=== PATIENT | female | born 1935 | race Caucasian/White ===

== ENCOUNTER 2017-05-22 11:17 | Emergency (ER) | payer MEDICARE, SELFPAY ==
[2017-05-22 11:20] VITALS: BP 131/70; PULSE 57; RESP 14; TEMP 36.2; O2SAT 96; BMI 29.7
--- NOTE | 2017-05-22 11:38 | EKG12_ITS ---
Test Reason : Blood Pressure : / mmHG Vent. Rate : 059 BPM Atrial Rate : 059 BPM P-R Int : 178 ms QRS Dur : 148 ms QT Int : 516 ms P-R-T Axes : 003 -10 075 degrees QTc Int : 510 ms Sinus bradycardia Left bundle branch block Abnormal ECG Confirmed by PETER POST, ADELFO ([id number]), editor producer IMANI ALEX ([id number]) on 05/27/2017 9:04:26 AM Referred By: SHANNA Confirmed By:ADELFO GREEN MD
--- NOTE | 2017-05-22 11:50 | RAD_ITS ---
STUDY: X-RAY CHEST REASON FOR EXAM: Female, 81 years old. Weakness and lightheadedness. TECHNIQUE: Single AP portable view of the chest. COMPARISON: Comparison is made with prior study dated April 19, 2014. FINDINGS: EKG electrodes are seen. The lungs are clear and expanded. Scattered calcified granulomas. There is no demonstrated pleural abnormality. There is mild cardiac enlargement. Normal mediastinum and armando. Normal visualized pulmonary arteries. There is atherosclerotic calcification of the aortic arch with tortuosity. There are diffuse degenerative changes of the visualized thoracic spine. Normal visualized ribs, clavicles, and shoulders. There is no demonstrated abnormality of the visualized soft tissue structures of the upper abdomen. RAD/Chest 1 View (Portable) IMPRESSION: Mild cardiomegaly. Electronically Signed: Jigar Hodgson MD at 12:19 EDT Tel [phone], Service support ,
[2017-05-22 11:55] LABS: Bedside Glucose 84 mg/dL (70-110)
[2017-05-22] MEDS: Ondansetron 4 MG/2 ML Vial IV (12:03)
[2017-05-22] MEDS: 0.9% Normal Saline 1,000 ML 1000 ML IV (12:03)
[2017-05-22 12:05] VITALS: BP 122/73; PULSE 60; RESP 14; O2SAT 98
[2017-05-22 12:20] LABS: Absolute Lymphocyte Count 1.13 X10^3/ul (0.83-4.51); Absolute Neutrophil Count 3.9 X10^3/uL (2.0-7.7); Basophil# 0.03 X10^3/uL; Basophil% 0.5 % (0-1); Eosinophils% 1.8 % (0-5); Hematocrit 42.4 % (37-47); Hemoglobin 13.6 g/dl (12.0-15.0); Lymphocyte # 1.13 X10^3/ul (4.0); Mean Corp Hgb Conc 32.1 g/gl (32-36); Mean Corpuscular Hgb 29.9 pg (27.0-32.0); Mean Corpuscular Volume 93.2 fL (81-99); Mean Platelet Vol. 10.6 fl (6.2-12.0); Monocyte# 0.46 X10^3/uL; Monocyte% 8.1 % (0-10); Neutrophil # 3.93 X10^3/uL (2.7-7.7); Neutrophil % 69.4 % (47-70); Platelet Count 155 K/mm3 (150-450); RBC Distribution Width CV 13.9 % (11.6-14.6); RBC Distribution Width SD 47.4 fl (35.1-43.9); Red Blood Count 4.55 M/mm3 (4.2-5.4); White Blood Count 5.7 K/mm3 (4.4-11.0)
[2017-05-22 12:21] LABS: POSITIVE COUNT NO; POSITIVE DIFFERENTIAL NO; POSITIVE MORPHOLOGY NO
[2017-05-22 12:34] LABS: ALB/GLOB Ratio 1.1 RATIO (0.9-2.4); AST(SGOT) 24 U/L (15-37); Alanine Aminotransfer ALT/SGPT 11 U/L (13-56); Albumin, Serum 3.8 g/dL (3.2-5.0); Alkaline Phosphatase 127 U/L (45-117); Anion Gap 8 (5-15); BUN 13 mg/dL (7-18); BUN/Creat Ratio 17.9 RATIO (10-20); Calcium,Total 8.9 mg/dL (8.5-10.1); Chloride 105 mmol/L (98-107); Creatinine, Serum 0.73 mg/dL (0.55-1.02); EST Glomerular Filtration Rate 82 mL/min (>60); Est Glom Filt Rate - Afr Amer 99 mL/min (>60); Estimated Creatinine Clearance 36.08 ml/min; Globulin 3.5 g/dL (2.2-4.2); Glucose 93 mg/dL (74-106); Potassium 4.1 mmol/L (3.5-5.1); Protein, Total 7.3 g/dL (6.4-8.2); Sodium Level 141 mmol/L (136-145)
[2017-05-22 13:08] VITALS: BP 113/68; BP 120/56; BP 127/62; PULSE 58; PULSE 63; PULSE 73
[2017-05-22 13:30] LABS: Color, Urine Yellow (Yellow); Glucose, Dipstick Normal (Normal); Ketone-Dipstick 5 mg/dl (Negative); Leukocyte Esterase-Dipstick 500 /ul (Negative); Nitrite-Dipstick Negative (Negative); Occult Blood-Urine 10 /ul (Negative); Protein-Dipstick 30 mg/dl (Negative); Specific Gravity, Urine 1.015 (1.002-1.030); Urine Bilirubin Dipstick Negative (Negative); Urine Clarity Cloudy (Clear); Urine Urobilinogen Normal (Normal)
[2017-05-22 13:40] LABS: Bacteria 1+ /hpf (None Seen); Hyaline Cast 0-5 SEEN /lpf (0-5); Mucous, Urine RARE /hpf (<or=2+); Red Blood Cells-Urine 0-5 SEEN /hpf (0-5); Renal Epithelial Cells 0-5 SEEN /hpf (0-5); Squamous Epithelial Cells - UA 5-10 SEEN /hpf (5-10); White Blood Cells 10-25 SEEN /hpf (0-5)
[2017-05-22 14:26] VITALS: BP 130/66; PULSE 66; RESP 13; O2SAT 96
--- NOTE | 2017-05-22 14:29 | ED.VISSUMM ---
- ER Visit Summary Date of Service: 05/22/17 Chief Complaint: Hypotension History of Present Illness: The patient is a 81 F who has a history of hypertension and Parkinson's. She has a known left bundle branch block. She states that she has had 3 prior heart catheterizations because of the bundle branch block. This morning she woke up feeling fine. She was in cutting her 's hair when she began to feel nauseated sweaty and weak. took her blood pressure was in the 80s. She states that she is doing better now but still nauseated and feels weak. She never lost consciousness. She denies any neurologic deficits. No chest pain or shortness of breath. Physical Examination: 131/76 temperature 97.1 heart rate is 57 respirations are 14 pulse ox 96% on room air Gen: Well-nourished well-developed Head: Normocephalic atraumatic Eyes: Perrl EOMI ENT: TMs clear no rhinorrhea moist mucous membranes Neck: Supple no lymphadenopathy no JVD nontender CVS: Regular rate rhythm no murmurs normal S1-S2 Respiratory: No distress clear to auscultation bilaterally chest nontender Abdomen: Soft nontender nondistended normal bowel sounds no masses Back: Nontender Extremity: Nontender no edema Skin: Normal color no rash Neuro: alert orientated ?3 CN II-XII intact normal strength sensation reflexes gait cerebellar Psych: Normal affect normal mood Test Results: A sinus rhythm at a rate of 59. CBC chemistries troponin negative. Urinalysis showed contamination. Chest x-ray negative. Emergency Department Course and Treatment: IV fluids and Zofran. Her orthostatics are negative. She has been up walking to the bathroom and feels very well. I do not see an obvious cause for her near syncopal episode today. Family is comfortable taking her home and will return should her symptoms return. Impression:. Near syncope This note was generated with [employer] dictation software. It may contain incorrect words, spelling, and punctuation that were not noted in review of the chart prior to signing ED Disposition - Plan for ED Patient: Disposition: Home or Assisted Living Chief Complaint: Hypotension Instructions: ED Near Syncope Unkn Referrals: Tin Ignacio MD [Primary Care Provider] - As Needed Additional Instructions: If symptoms return please lay down and return immediately to the emergency department
== END 2017-05-22 14:44 | disposition home or self-care (01) ==
PROVIDERS: Emergency Provider Emergency Medicine; Family Provider Internal Medicine; PCP Internal Medicine
DX: R55 Syncope and collapse (principal); I10 Essential (primary) hypertension; I44.7 Left bundle-branch block, unspecified; G20 Parkinson's disease
CPT/HCPCS: 71045; 80053; 81001; 82962; 84484; 85025; 93005; 96361; 96374; 99285; J7030; A4216; J2405

== ENCOUNTER 2017-06-15 17:08 | Emergency (ER) | payer MEDICARE, SELFPAY ==
[2017-06-15 17:09] VITALS: BP 131/66; PULSE 73; RESP 14; TEMP 36.7; O2SAT 95; BMI 28.8
[2017-06-15 17:57] VITALS: BP 110/63; BP 116/66; BP 122/58; PULSE 102; PULSE 70; PULSE 80
[2017-06-15 18:00] LABS: Hemoglobin 13.5 g/dl (12.0-15.0); Mean Corp Hgb Conc 32.9 g/gl (32-36); Mean Corpuscular Hgb 30.5 pg (27.0-32.0); Mean Corpuscular Volume 92.6 fL (81-99); Mean Platelet Vol. 10.6 fl (6.2-12.0); Platelet Count 164 K/mm3 (150-450); RBC Distribution Width CV 13.4 % (11.6-14.6); RBC Distribution Width SD 45.4 fl (35.1-43.9); Red Blood Count 4.43 M/mm3 (4.2-5.4); White Blood Count 6.5 K/mm3 (4.4-11.0)
[2017-06-15 18:05] LABS: Scan Indicated on CBC? Y/N NO
[2017-06-15 18:06] LABS: Anion Gap 4 (5-15); BUN 9 mg/dL (7-18); BUN/Creat Ratio 13.8 RATIO (10-20); Calcium,Total 8.8 mg/dL (8.5-10.1); Chloride 108 mmol/L (98-107); Creatinine, Serum 0.65 mg/dL (0.55-1.02); EST Glomerular Filtration Rate 93 mL/min (>60); Est Glom Filt Rate - Afr Amer 113 mL/min (>60); Estimated Creatinine Clearance 36.08 ml/min; Glucose 113 mg/dL (74-106); Potassium 3.7 mmol/L (3.5-5.1); Sodium Level 140 mmol/L (136-145)
--- NOTE | 2017-06-15 19:48 | ED.DCSUM_ITS ---
- ER Visit Summary Date of Service: 06/15/17 Chief Complaint: Dizziness with nausea and sense of unwellness History of Present Illness: The patient is a 81 F who presents with dizziness. Patient's definition of dizziness as lightheadedness. She apparently has had this in the past and visited other emergency departments and was found to have positive orthostatic vital signs. She denies headache. Denies double vision, blurred vision loss of vision. She has trouble speech or swallowing. She denies paresthesia, anesthesia or motor weakness. She denies clumsiness or falling. There is no history of trauma. She denies black, bloody or maroon stool. She does complain of nausea without vomiting. Denies abdominal pain or back pain. Denies chest pain or respiratory symptoms. She states this started shortly after her carbidopa was increased from twice a day to 3 times a day by her neurologist Dr. Ruffin. Upon further questioning states she has complained of some intermittent blurred vision. The blurred vision was binocular. She also complains of depression. states she also was placed on a medicine for her medical memory since she has mild dementia. Physical Examination: Vital signs remarkable slight elevation blood pressure 131 /66. Orthostatic vital signs are negative. Patient has a masked face. Head is atraumatic normocephalic. Pupils are equal round reactive. Extraocular muscles are intact. TMs are pearly white with landmarks noted. Nares patent with no drainage. Posterior pharynx without erythema or exudate. Uvula is midline. There is no dysphonia or dysphasia. Trachea is midline. There is no stridor with auscultation of the neck. Heart is regular without murmur, gallop or rub. S1 and S2 are normal. Lungs are clear to auscultation with good movement of air bilaterally. Abdomen is soft nontender with normal bowel sounds. No palpable cell mass. She is alert oriented ?3. Psychomotor skills are slow. Motor and sensory intact. She has cogwheel rigidity of her extremities. DTRs are diminished but symmetric. There is no clonus or Babinski sign noted. Cranial 2 through 12 are intact. Test Results: Orthostatic vital signs negative. CBC electro panel are unremarkable. Emergency Department Course and Treatment: Since patient has prior history onset of hypertension and this is a known side effect from carbidopa orthostatics were ordered. Blood work was ordered as well because she states she had dark stool but not black stool. Treatment Plan: Spoke with Dr. Yun on-call for Dr. Ruffin. Recommended follow-up with her PCP and Dr. Ruffin. This may be a polypharmaceutical reaction since she is on 3 antihypertensive meds as well as carbidopa which may attribute to her orthostatic symptoms. Disposition: Discharged to home in stable condition Impression: 1. Lightheadedness of uncertain etiology 2. Nausea uncertain etiology 3. History of Parkinson's disease 4. History of hypertension This note was generated with [employer] software. It may contain incorrect words, spelling, and punctuation that were not noted in review of the chart prior to signing ED Disposition - Plan for ED Patient: Disposition: Home or Assisted Living Chief Complaint: Dizziness Instructions: ED Dizziness [facility] Referrals: Tin Ignacio MD [Primary Care Provider] - 3-5 Days Additional Instructions: Call Dr. Ruffin's office on Friday to discuss your symptoms.
[2017-06-15 19:54] VITALS: BP 114/51; PULSE 68; RESP 12; O2SAT 95
== END 2017-06-15 19:56 | disposition home or self-care (01) ==
PROVIDERS: Emergency Provider Emergency Medicine; Family Provider Internal Medicine; PCP Internal Medicine
DX: R42 Dizziness and giddiness (principal); R11.0 Nausea; G20 Parkinson's disease; I10 Essential (primary) hypertension; F32.9 Major depressive disorder, single episode, unspecified
CPT/HCPCS: 80048; 85027; 99284; A4216

== ENCOUNTER 2017-09-05 16:26 | Observation (INO) | payer MEDICARE, SELFPAY ==
[2017-09-05] VITALS (13 sets, daily range): BP systolic 116–146; BP diastolic 56–73; PULSE 61–93; RESP 11–19; TEMP 36.6–36.9; O2SAT 93–98; BMI 28.0; BMI 27.3
--- NOTE | 2017-09-05 16:55 | CT_ITS ---
STUDY: CT BRAIN WITHOUT CONTRAST REASON FOR EXAM: Female, 81 years old. Weakness and dizziness RADIATION DOSAGE (If Supplied By Facility): CTDIvol = ( 44.99 ) mGy, DLP = ( 796.11 ) mGycm TECHNIQUE: Transaxial CT imaging of the brain was performed without administration of intravenous contrast material. Individualized dose optimization techniques were used for this CT. COMPARISON: None. FINDINGS: Normal soft tissue structures. There is hyperostosis frontalis internus. Normal size ventricles and extra-axial spaces for the patient's age. There are areas of decreased attenuation within the white matter tracts of the supratentorial brain, consistent with microvascular disease changes. Normal basal ganglia and thalami. Normal brainstem. Normal cerebellum. There is no intracranial hemorrhage. There are no findings of an acute ischemic infarction. Normal visualized paranasal sinuses. CT/Brain/Head without Contrast IMPRESSION: Chronic involutional changes of the brain. Electronically Signed: Michael Inman MD at 19:06 EDT , Service support ,
--- NOTE | 2017-09-05 16:55 | EKG12_ITS ---
Test Reason : DIZZINESS Blood Pressure : / mmHG Vent. Rate : 073 BPM Atrial Rate : 073 BPM P-R Int : 166 ms QRS Dur : 160 ms QT Int : 476 ms P-R-T Axes : 011 -19 069 degrees QTc Int : 524 ms Normal sinus rhythm Left bundle branch block Abnormal ECG Confirmed by KELLE EDEN ([id number]), online editor IMANI ALEX ([id number]) on 09/09/2017 1:39:10 PM Referred By: GABRIEL Confirmed By:KELLE EDEN
[2017-09-05 17:25] LABS: Bedside Glucose 84 mg/dL (70-110)
[2017-09-05 17:40] LABS: Prothrombin Time (Protime)PT. 13.3 SECONDS (11.7-14.9)
[2017-09-05 17:41] LABS: Partial Thromboplast Time 32.8 Seconds (24.1-36.2)
--- NOTE | 2017-09-05 17:41 | ED.VISSUMM ---
- ER Visit Summary Date of Service: 09/05/17 Chief Complaint: Dizziness History of Present Illness: The patient is a 81 F presenting with dizziness and near syncope. Patient states it started around 1 hour ago. She denies vertigo symptoms. She states that she is unsteady on her feet and feels very dizzy. She also noted that she saw bugs crawling on a tile. Her family states that they were not there. She was reluctant to tell her family because she did not want to come to the emergency department. She denies fever. Denies chest pain or shortness of breath. Physical Examination: Vitals are stable. Patient is afebrile. Alert no acute distress. HEENT exam is unremarkable. Neck is supple. Lungs are clear and equal bilaterally. Heart is regular rate and rhythm. Abdomen is soft nontender nondistended. Extremities are unremarkable. Skin is warm and dry. No focal neurologic deficit. NIH 0 Remainder of exam is unremarkable. Emergency Department Course and Treatment: EKG is sinus with a left bundle branch block rate of 73. CBC, chemistries unremarkable. INR is 1.0. Urinalysis unremarkable. Troponin is negative. Patient continues to have some dizziness. She states she was able to get up with assistance. Discussed with the hospitalist for admission. Disposition: Observation Impression: Near syncope This note was generated with [employer] dictation software. It may contain incorrect words, spelling, and punctuation that were not noted in review of the chart prior to signing ED Disposition - Plan for ED Patient: Chief Complaint: Dizziness Referrals: Tin Ignacio MD [Primary Care Provider] -
[2017-09-05 17:44] LABS: Absolute Neutrophil Count 2.9 X10^3/uL (2.0-7.7); Anion Gap 6 (5-15); BUN 12 mg/dL (7-18); BUN/Creat Ratio 20.1 RATIO (10-20); Basophil# 0.05 X10^3/uL; Basophil% 0.9 % (0-1); Calcium,Total 9.2 mg/dL (8.5-10.1); Chloride 108 mmol/L (98-107); EST Glomerular Filtration Rate 103 mL/min (>60); Eosinophil# 0.16 X10^3/uL; Eosinophils% 2.8 % (0-5); Est Glom Filt Rate - Afr Amer 124 mL/min (>60); Estimated Creatinine Clearance 36.08 ml/min; Glucose 83 mg/dL (74-106); Hematocrit 39.9 % (37-47); Hemoglobin 12.7 g/dl (12.0-15.0); Lymphocyte % 33.4 % (19-41); Mean Corp Hgb Conc 31.8 g/gl (32-36); Mean Corpuscular Hgb 30.4 pg (27.0-32.0); Mean Corpuscular Volume 95.5 fL (81-99); Mean Platelet Vol. 10.6 fl (6.2-12.0); Monocyte# 0.64 X10^3/uL; Monocyte% 11.2 % (0-10); Neutrophil # 2.94 X10^3/uL (2.7-7.7); Neutrophil % 51.7 % (47-70); Platelet Count 165 K/mm3 (150-450); Potassium 4.1 mmol/L (3.5-5.1); RBC Distribution Width CV 13.9 % (11.6-14.6); Red Blood Count 4.18 M/mm3 (4.2-5.4); Sodium Level 142 mmol/L (136-145); White Blood Count 5.7 K/mm3 (4.4-11.0)
[2017-09-05 17:45] LABS: POSITIVE COUNT NO; POSITIVE DIFFERENTIAL NO; POSITIVE MORPHOLOGY NO
[2017-09-05 18:02] LABS: Mucous, Urine 0 SEEN /hpf (<or=2+); Red Blood Cells-Urine 0 SEEN /hpf (0-5); Squamous Epithelial Cells - UA 0 SEEN /hpf (5-10); White Blood Cells 0 SEEN /hpf (0-5)
[2017-09-05 18:05] LABS: Color, Urine Yellow (Yellow); Glucose, Dipstick Normal (Normal); Ketone-Dipstick Negative (Negative); Leukocyte Esterase-Dipstick Negative /ul (Negative); Nitrite-Dipstick Negative (Negative); Occult Blood-Urine Negative /ul (Negative); Protein-Dipstick Negative (Negative); Urine Bilirubin Dipstick Negative (Negative); Urine Clarity Clear (Clear); Urine Urobilinogen Normal (Normal)
--- NOTE | 2017-09-05 18:09 | RAD_ITS ---
STUDY: X-RAY CHEST REASON FOR EXAM: Female, 81 years old. Dizziness, confusion TECHNIQUE: Single AP portable view of the chest. COMPARISON: Prior study of 05/22/2017 FINDINGS: pyrotechnician leads are present. The lungs are clear and expanded. There is no demonstrated pleural abnormality. There is mild cardiac enlargement. Normal mediastinum and armando. Normal visualized pulmonary arteries. There are calcified plaques of the aortic arch. Normal visualized thoracic spine. Normal visualized ribs, clavicles, and shoulders. There is no demonstrated abnormality of the visualized soft tissue structures of the upper abdomen. RAD/Chest 1 View IMPRESSION: 1. Mild cardiomegaly. 2. Calcified plaques of the aortic arch. 3. No acute cardiopulmonary disease process is seen. Chest findings are stable in the interval. Electronically Signed: Michael Inman MD at 19:02 EDT , Service support ,
[2017-09-05 18:18] LABS: Bacteria RARE /hpf (None Seen)
--- NOTE | 2017-09-05 20:43 | HP.PCM_ITS ---
Problem List (1) Chronic back pain Status: Chronic (2) GERD (gastroesophageal reflux disease) Status: Chronic (3) Hypertension Status: Chronic (4) Parkinson disease Status: Chronic (5) Syncopal episodes Status: Chronic History of Present Illness Date of Admission: 09/05/17 Chief Complaint: Vertigo secondary to orthostatic hypotension The patient is a 81 year old female w/ h/o Parkinson disease, HTN, GERD and chronic pain admitted for vertigo. Pt has chronic vertigo for the past few years. However she has diarrhea in the past few days. She has been getting dizzy whenever she stands up. Sometimes her dizzy is so severe that she has to sit back down or have a presyncopal episode. She has been unable to care for herself and has been relying on her . She also has worsening confusion and hallucination in the past few days to week. Past Medical History Past Medical History (Chronic Problems): Chronic Problems Parkinson disease (Chronic) Hypertension (Chronic) GERD (gastroesophageal reflux disease) (Chronic) Chronic back pain (Chronic) Syncopal episodes (Chronic) Allergies adhesive Allergy (Verified 09/05/17 16:27) Rash ciprofloxacin [From Cipro] Allergy (Verified 09/05/17 16:27) Rash latex Allergy (Verified 09/05/17 16:27) Rash Home Medications: Ambulatory Orders Medication Instructions Recorded Amlodipine [Norvasc] 5 mg PO DAILY 04/19/14 Atenolol [Tenormin (beta gilbert)] 25 mg PO DAILY 04/19/14 Cholecalciferol (VIT D3) [Vitamin 1,000 unit PO DAILY 04/19/14 D3] Lisinopril [Zestril] 40 mg PO DAILY 04/19/14 Magnesium 250 mg PO DAILY 04/19/14 Acetaminophen [Tylenol Tablet] 650 mg PO Q6H PRN PRN #30 tablet 04/20/14 Aspirin [Lo-Dose Aspirin EC] 81 mg PO DAILY 05/22/17 Atorvastatin Calcium [Lipitor] 20 mg PO QHS 05/22/17 Carbidopa/Levodopa 50/200 [Sinemet 1 tab PO BID 05/22/17 CR 50/200] Clonazepam [Klonopin] 0.5 mg PO QHS 05/22/17 Omeprazole 20 mg PO DAILY 05/22/17 Calcium Carbonate [Calcium] 1,200 mg PO DAILY 09/05/17 Mv-Min/FA/Vit K/Lycop/Lut/Zeax 1 each PO DAILY 09/05/17 [Ocuvite Eye + Multi Tablet] Surgical History: appendectomy, cholecystectomy, - - Bladder suspension history , L hip repair/pinning s/p fracture. Psychiatric History: No pertinent psych hx PERSONNEL MONITOR History: No pertinent PERSONNEL MONITOR history Lives: Spouse/ Significant Other, With Family Smoking Status: Never smoker Alcohol: None Drugs: None - *Family History Maternal History Items: No pertinent history Paternal History Items: No pertinent history Review of Systems Constitutional: Denies: Chills, Fever, Weight Change HEENT: Denies: Head Aches, Sinus Congestion, Sinus Drainage Cardiovascular: Denies: Chest Pain, Palpitations Respiratory: Denies: Cough, Shortness of breath at rest, Sputum production Gastrointestinal: Denies: Abdominal Pain, Nausea, Vomiting Genitourinary: Denies: Dysuria Musculoskeletal: Denies: Joint Pain, Joint Tenderness Skin: Denies: Rash, Wounds Neurological: Reports: - - Vertigo. Denies: Focal weakness, Numbness, Tingling Psychiatric: Denies: Anxiety, Depression, Homicidal Ideations, Suicidal Ideations Hematologic/ Lymphatic: Denies: Easy Bruising, Easy Bleeding VTE Information - Inpt Only VTE Present on Admission: No VTE Mechan Device Prophylaxis: SCD's VTE Pharm Prophylaxis ordered?: Yes - Physical Exam General: Alert, Oriented x3, Cooperative HEENT: Atraumatic, PERRLA, EOMI, Normocephalic Neck: Supple, No JVD, Negative Carotid Bruits Lungs: Clear to auscultation, Normal air movement Cardiovascular: Regular rate, No murmurs Abdomen: Bowel Sounds Present, Soft, Non Tender Extremities: No edema, Capillary Refill Less than 3 Seconds Skin: No rashes, No breakdown Musculoskeletal: No Tenderness to Palpation of Joints or Extremities Neurological: Cranial nerves II-XII grossly intact Psych/Mental Status: Normal Affect, Appropriate Vital Signs Temp Pulse Resp BP Pulse Ox 97.9 F 67 13 138/61 H 94 09/05/17 16:26 09/05/17 20:18 09/05/17 20:18 09/05/17 20:18 09/05/17 20:18 Oxygen Delivery Method Room Air Weight: 69.4 kg Body Mass Index (BMI) 28.0 Finger Stick Blood Glucose 84 Laboratory Tests Past 24 Hrs 09/05/17 09/05/17 09/05/17 17:15 17:15 17:15 WBC 5.7 RBC 4.18 L Hgb 12.7 Hct 39.9 MCV 95.5 MCH 30.4 MCHC 31.8 L RDW 13.9 RDW Differential 48.0 H Plt Count 165 MPV 10.6 Immature Gran % (Auto) 0.000 Neut % (Auto) 51.7 Lymph % (Auto) 33.4 Stevens % (Auto) 11.2 H Eos % (Auto) 2.8 Baso % (Auto) 0.9 Absolute Neuts (auto) 2.9 Absolute Lymphs (auto) 1.90 Total Counted Not Reportable PT 13.3 INR 1.0 APTT 32.8 Sodium 142 Potassium 4.1 Chloride 108 H Carbon Dioxide 28.0 Anion Gap 6 BUN 12 Creatinine 0.60 Estim Creat Clear Calc 36.08 Est GFR (MDRD) Af Amer 124 Est GFR (MDRD) Non-Af 103 BUN/Creatinine Ratio 20.1 H Glucose 83 Calcium 9.2 Troponin I < 0.015 Urine Color Urine Clarity Urine pH Ur Specific [place] Urine Protein Urine Glucose (UA) Urine Ketones Urine Occult Blood Urine Nitrite Urine Bilirubin Urine Urobilinogen Ur Leukocyte Esterase Urine RBC Urine WBC Ur Squamous Epith Cells Urine Bacteria Urine Mucus 09/05/17 17:50 WBC RBC Hgb Hct MCV MCH MCHC RDW RDW Differential Plt Count MPV Immature Gran % (Auto) Neut % (Auto) Lymph % (Auto) Stevens % (Auto) Eos % (Auto) Baso % (Auto) Absolute Neuts (auto) Absolute Lymphs (auto) Total Counted PT INR APTT Sodium Potassium Chloride Carbon Dioxide Anion Gap BUN Creatinine Estim Creat Clear Calc Est GFR (MDRD) Af Amer Est GFR (MDRD) Non-Af BUN/Creatinine Ratio Glucose Calcium Troponin I Urine Color Yellow Urine Clarity Clear Urine pH 7.0 Ur Specific [place] 1.010 Urine Protein Negative Urine Glucose (UA) Normal Urine Ketones Negative Urine Occult Blood Negative Urine Nitrite Negative Urine Bilirubin Negative Urine Urobilinogen Normal Ur Leukocyte Esterase Negative Urine RBC 0 SEEN Urine WBC 0 SEEN Ur Squamous Epith Cells 0 SEEN Urine Bacteria RARE Urine Mucus 0 SEEN POC Glucose 09/05/17 17:22 POC Glucose 84 Assessment/Plan 81 year old female w/ h/o Parkinson disease, HTN, GERD and chronic pain admitted for vertigo. 1) Vertigo: Most likely orthostatic hypotension. Pt is positive for orthostatic. Hydration. 2) Presyncope: Most likely secondary to vertigo. Will get ECHO. Will get trops. Monitor. 3) Parkinson: Resume home meds.
[2017-09-05 22:30] LABS: Thyroid Stim Hormone (TSH) 1.38 uIU/mL (0.358-3.74)
[2017-09-05] MEDS: clonazePAM 0.5 MG Tablet PO (23:03)
[2017-09-05] MEDS: Acetaminophen 325 MG Tablet 650 MG PO (23:04)
[2017-09-05] MEDS: 0.9% Normal Saline 1,000 ML 100 ML IV (23:04)
[2017-09-05] MEDS: CARBIDOPA/LEVODOPA CR 50/200 Tablet PO (23:06)
[2017-09-05] MEDS: Atorvastatin Calcium 20 MG Tablet PO (23:06)
[2017-09-06] VITALS (13 sets, daily range): BP systolic 88–143; BP diastolic 50–75; PULSE 55–87; RESP 16–18; TEMP 36.7–36.9; O2SAT 93–98
--- NOTE | 2017-09-06 05:55 | ECHOD_ITS ---
Reason For Study: HTN Procedure This was a 2D Doppler, Color Flow transthoracic echocardiogram. Exam performed portable in patient room. Left Ventricle Normal size and thickness. The estimated ejection fraction is 45 %. Septal motion consistent with IVCD. There is moderate global hypokinesis of the left ventricle. Right Ventricle Mildly dilated right ventricle. Normal systolic function. Atria Normal left atrium. Normal right atrium. Normal atrial septum. Mitral Valve The mitral valve is structurally normal. No prolapse or stenosis seen. Trivial mitral valve insufficiency. Tricuspid Valve Normal tricuspid valve. Trivial tricuspid valve insufficiency. Right ventricular systolic pressure estimated to be 32 mmHg. Aortic Valve Trisinus/trileaflet aortic valve. Normal aortic valve. Pulmonic Valve Normal pulmonic valve. Great Vessels Normal aortic root. Normal arch. Normal inferior vena cava. Inferior vena cava collapse with sniff. Pericardium/Pleural No pericardial effusion. MMode/2D Measurements & Calculations LVIDd: 4.3 cm IVSd: 1.1 cm Ao root diam: 3.3 cm LVIDs: 2.5 cm LVPWd: 1.2 cm LA dimension: 4.3 cm RVDd: 3.8 cm FS: 42.8 % LAV(MOD-bp): 57.7 ml LVAd ap4: 35.9 cm2 SV(MOD-sp4): 83.3 ml LAV(MOD-bp) Indexed: 34.2 ml/m2 EDV(MOD-sp4): 137.6 ml LAV(MOD-sp2): 55.6 ml EDV(sp4-el): 148.6 ml LAV(MOD-sp4): 49.1 ml LVAs ap4: 20.2 cm2 ESV(MOD-sp4): 54.2 ml ESV(sp4-el): 57.8 ml EF(MOD-sp4): 60.6 % EF(sp4-el): 61.1 % SV(sp4-el): 90.8 ml LA A4 area: 16.4 cm2 Time Measurements MV dec time: 0.18 sec Doppler Measurements & Calculations MV E max eduardo: 52.3 cm/sec Lat Peak E' Eduardo: 7.6 cm/sec Med Peak E' Eduardo: 5.4 cm/sec MV A max eduardo: 98.7 cm/sec E/E' lat: 6.9 E/E' med: 9.8 MV E/A: 0.53 MV V2 max: 103.5 cm/sec MV P1/2t max eduardo: 54.4 cm/sec Ao V2 max: 117.8 cm/sec MV max P.3 mmHg MV P1/2t: 84.4 msec Ao max P.5 mmHg MV V2 mean: 53.5 cm/sec MV dec slope: 188.6 cm/sec2 Ao V2 mean: 77.9 cm/sec MV mean P.4 mmHg MVA(P1/2t): 2.6 cm2 Ao mean P.8 mmHg MV V2 VTI: 19.9 cm Ao V2 VTI: 25.1 cm LV V1 max: 92.0 cm/sec PA V2 max: 117.5 cm/sec TR max eduardo: 262.6 cm/sec LV V1 max P.4 mmHg TR max P.6 mmHg LV V1 mean P.5 mmHg LV V1 mean: 56.2 cm/sec LV V1 VTI: 19.5 cm Interpretation Summary The estimated ejection fraction is 45-50%. There is moderate global hypokinesis of the left ventricle. Mildly dilated right ventricle. Trivial mitral valve insufficiency. Trivial tricuspid valve insufficiency. Right ventricular systolic pressure estimated to be 32 mmHg. Compared to echo report dated 04/19/2014, no appreciable changes noted. Ordering Physician: Hubert Whitt Referring Physician: Tin Ignacio M.D. Performed By: Victor Manuel Ortiz RCS
[2017-09-06 07:34] LABS: Absolute Lymphocyte Count 1.48 X10^3/ul (0.83-4.51); Absolute Neutrophil Count 2.9 X10^3/uL (2.0-7.7); Basophil# 0.05 X10^3/uL; Eosinophil# 0.19 X10^3/uL; Eosinophils% 3.7 % (0-5); Lymphocyte # 1.48 X10^3/ul (4.0); Lymphocyte % 28.6 % (19-41); Mean Corp Hgb Conc 32.4 g/gl (32-36); Mean Corpuscular Hgb 31.1 pg (27.0-32.0); Mean Corpuscular Volume 95.9 fL (81-99); Mean Platelet Vol. 11.2 fl (6.2-12.0); Monocyte# 0.51 X10^3/uL; Monocyte% 9.8 % (0-10); Neutrophil # 2.94 X10^3/uL (2.7-7.7); Neutrophil % 56.7 % (47-70); Platelet Count 158 K/mm3 (150-450); RBC Distribution Width CV 13.6 % (11.6-14.6); RBC Distribution Width SD 45.9 fl (35.1-43.9); Red Blood Count 3.86 M/mm3 (4.2-5.4); White Blood Count 5.2 K/mm3 (4.4-11.0)
[2017-09-06 07:40] LABS: POSITIVE COUNT NO; POSITIVE DIFFERENTIAL NO; POSITIVE MORPHOLOGY NO
[2017-09-06 07:44] LABS: Anion Gap 5 (5-15); BUN 8 mg/dL (7-18); BUN/Creat Ratio 17.9 RATIO (10-20); Chloride 111 mmol/L (98-107); Creatinine, Serum 0.45 mg/dL (0.55-1.02); EST Glomerular Filtration Rate 144 mL/min (>60); Est Glom Filt Rate - Afr Amer 174 mL/min (>60); Estimated Creatinine Clearance 36.08 ml/min; Glucose 92 mg/dL (74-106); Potassium 3.8 mmol/L (3.5-5.1); Sodium Level 143 mmol/L (136-145)
[2017-09-06] MEDS: amLODIPine 5 MG Tablet PO (08:45)
[2017-09-06] MEDS: Pantoprazole Sodium 20 MG Tablet PO (08:45)
[2017-09-06] MEDS: Aspirin E.C. 81 MG Tablet PO (08:45)
[2017-09-06] MEDS: Atenolol 25 MG Tablet PO (08:46)
[2017-09-06] MEDS: Magnesium Oxide 400 MG Tablet 200 MG PO (08:46)
[2017-09-06] MEDS: Multivitamins,Ther W-Minerals Tablet 1 TABLET PO (08:47)
[2017-09-06] MEDS: 0.9% Normal Saline 1,000 ML 100 ML IV ×2 (08:49→20:38)
[2017-09-06] MEDS: Acetaminophen 325 MG Tablet 650 MG PO ×2 (10:40→18:04)
[2017-09-06] MEDS: Calcium (Elemental) 500 MG Tablet 1000 MG PO (10:40)
[2017-09-06] MEDS: CARBIDOPA/LEVODOPA CR 50/200 Tablet PO ×2 (10:41→22:00)
--- NOTE | 2017-09-06 11:06 | CASEMGMT ---
RN CM Assessment. Intro role of CM to patient in room with her . Pt is independent, has walker cane at home but does not use. Home is one story. drives, no difficulty with prescription coverage. No Dc needs identified. Artem LAMN RN ACM
--- NOTE | 2017-09-06 14:09 | PCM.PN.HOSP ---
Subjective: Patient was seen and examined. seen at the bedside. Complains of still feeling dizzy. Vitals reviewed, slightly orthostatic, IV fluids ongoing at 100mls/hr. Denies chest pain or worsening shortness of breath. Vitals/I&O's: Vital Signs Temp Pulse Resp BP Pulse Ox 98.5 F 66 18 116/58 L 98 09/06/17 08:40 09/06/17 13:56 09/06/17 08:40 09/06/17 13:56 09/06/17 08:40 Oxygen Delivery Method Room Air Weight: 67.7 kg Body Mass Index (BMI) 27.3 Orthostatic Vital Signs Start: 09/06/17 00:18 Freq: 0600 Status: Active Protocol: Activity Type Activity Date Activity User E-Sign Co-Sign Detail Recorded Client Recorded Date Recorded By Document 09/06/17 13:56 AEC [id number] 09/06/17 13:59 AEC 09/06/17 13:56 Orthostatic Vitals Standing -Blood Pressure (90/60-120/80) 88/50 L -Extremity Use Right Arm -Pulse Rate (60-100) 74 Sitting -Blood Pressure (90/60-120/80) 110/58 L -Extremity Use Right Arm -Pulse Rate (60-100) 66 Lying -Blood Pressure (90/60-120/80) 116/58 L -Extremity Use Right Arm -Pulse Rate (60-100) 66 Intake and Output for Last 24 Hours 09/04/17 09/05/17 09/06/17 23:59 23:59 23:59 Intake Total 1016 / 1016 Output Total 450 / 450 Balance 566 / 566 General: Alert, Oriented x3, Cooperative, No apparent distress HEENT: Atraumatic, PERRLA, EOMI, Normocephalic Oral: Moist Mucosa Neck: Supple Lungs: Clear to auscultation, Normal air movement Cardiovascular: Regular rate, Regular Rhythm, Normal S1, Normal S2, No murmurs Abdomen: Bowel Sounds Present, Soft, Non Tender, Non-Distended, No Hepato-splenomegaly Extremities: Edema - trace bilateral Skin: No rashes, No breakdown Musculoskeletal: No Tenderness to Palpation of Joints or Extremities Lymphatic: No Cervical, Supraclavicular, or Inguinal Adenopathy Neurological: Cranial nerves II-XII grossly intact Psych/Mental Status: Normal Affect, Appropriate Laboratory Results 09/05/17 21:36: Troponin I < 0.015, TSH 1.38 09/06/17 00:38: Troponin I < 0.015 09/06/17 06:35: Sodium 143, Potassium 3.8, Chloride 111 H, Carbon Dioxide 27.0, Anion Gap 5, BUN 8, Creatinine 0.45 L, Estim Creat Clear Calc 36.08, Est GFR (MDRD) Af Amer 174, Est GFR (MDRD) Non-Af 144, BUN/Creatinine Ratio 17.9, Glucose 92, Calcium 8.0 L 09/06/17 06:35: WBC 5.2, RBC 3.86 L, Hgb 12.0, Hct 37.0, MCV 95.9, MCH 31.1, MCHC 32.4, RDW 13.6, RDW Differential 45.9 H, Plt Count 158, MPV 11.2, Immature Gran % (Auto) 0.200, Neut % (Auto) 56.7, Lymph % (Auto) 28.6, Lee % (Auto) 9.8, Eos % (Auto) 3.7, Baso % (Auto) 1.0, Absolute Neuts (auto) 2.9, Absolute Lymphs (auto) 1.48, Total Counted Not Reportable Current Medications Acetaminophen (Tylenol) 650 mg PO Q6H PRN PRN PRN Reason: Mild Pain (scale 0-3)/T>100.7 Last Admin: 09/06/17 10:40 Dose: 650 mg Amlodipine Besylate (Norvasc) 5 mg PO DAILY [facility] Last Admin: 09/06/17 08:45 Dose: 5 mg [facility] Last Admin: 09/06/17 08:45 Dose: 81 mg Atenolol (Tenormin (Beta Gokul)) 25 mg PO DAILY [facility] Last Admin: 09/06/17 08:46 Dose: 25 mg Atorvastatin Calcium (Lipitor) 20 mg PO QHS [facility] Last Admin: 09/05/17 23:06 Dose: 20 mg Calcium Carbonate (Os-Cam[place] 500) 1,000 mg PO DAILY [facility] Last Admin: 09/06/17 10:40 Dose: 1,000 mg Carbidopa/Levodopa (Sinemet Cr) 1 tablet PO BID [facility] Last Admin: 09/06/17 10:41 Dose: 1 tablet Cholecalciferol (Vitamin D) 1,000 unit PO DAILY [facility] Last Admin: 09/06/17 08:44 Dose: 1,000 unit Clonazepam (Klonopin) 0.5 mg PO QHS [facility] Last Admin: 09/05/17 23:03 Dose: 0.5 mg Sodium Chloride () 1,000 mls @ 100 mls/hr IV .Q10H [facility] Last Admin: 09/06/17 08:49 Dose: 100 mls/hr Lisinopril (Zestril) 40 mg PO DAILY [facility] Magnesium Hydroxide (Milk Of Magnesia) 30 ml PO DAILY PRN PRN PRN Reason: Constipation Magnesium Oxide (Mag-Ox 400) 200 mg PO DAILY [facility] Last Admin: 09/06/17 08:46 Dose: 200 mg Multivitamins/Minerals (Multivitamin With Minerals) 1 tablet PO DAILY@0800 [facility] Last Admin: 09/06/17 08:47 Dose: 1 tablet Pantoprazole Sodium (Protonix) 20 mg PO DAILY [facility] Last Admin: 09/06/17 08:45 Dose: 20 mg Sodium Chloride () 5 - 30 ml IV UD PRN PRN Reason: SALINE FLUSH Medical Necessity - Tobacco Use Smoking Status: Never smoker Assessment/Plan 81-year-old female with past medical history of Parkinson's disease, hypertension, GERD comes in with complaints of dizziness 1. Dizziness secondary to orthostatic hypotension likely related to autonomic dysfunction from Parkinson's disease 2D echo shows EF of 45-50, moderate global hypokinesis of the left ventricle, treated via valve disease, RVSP was 32 Patient remains orthostatic, continue on IV fluids, recheck orthostatic vitals every shift 2. Hypertension, controlled, relatively hypotensive, would hold amlodipine, decrease atenolol to 12.5 mg p.o. daily, decrease lisinopril to 20 mg p.o. daily, continue to monitor blood pressures 3. Parkinson's disease, complicated by hallucinations, insomnia, on Sinemet, clonazepam 4. Hyperlipidemia, on statins 5. DVT PPx- Lovenox SC 6. Disposition: Pending PT/OT eval Code Visit Inpatient E&M: 89219 Subs Hosp L2
--- NOTE | 2017-09-06 14:18 | PN_ITS ---
Subjective: Patient was seen and examined. seen at the bedside. Complains of still feeling dizzy. Vitals reviewed, slightly orthostatic, IV fluids ongoing at 100mls/hr. Denies chest pain or worsening shortness of breath. Vitals/I&O's: Vital Signs Temp Pulse Resp BP Pulse Ox 98.5 F 66 18 116/58 L 98 09/06/17 08:40 09/06/17 13:56 09/06/17 08:40 09/06/17 13:56 09/06/17 08:40 Oxygen Delivery Method Room Air Weight: 67.7 kg Body Mass Index (BMI) 27.3 Orthostatic Vital Signs Start: 09/06/17 00:18 Freq: 0600 Status: Active Protocol: Activity Type Activity Date Activity User E-Sign Co-Sign Detail Recorded Client Recorded Date Recorded By Document 09/06/17 13:56 AEC [id number] 09/06/17 13:59 AEC 09/06/17 13:56 Orthostatic Vitals Standing -Blood Pressure (90/60-120/80) 88/50 L -Extremity Use Right Arm -Pulse Rate (60-100) 74 Sitting -Blood Pressure (90/60-120/80) 110/58 L -Extremity Use Right Arm -Pulse Rate (60-100) 66 Lying -Blood Pressure (90/60-120/80) 116/58 L -Extremity Use Right Arm -Pulse Rate (60-100) 66 Intake and Output for Last 24 Hours 09/04/17 09/05/17 09/06/17 23:59 23:59 23:59 Intake Total 1016 / 1016 Output Total 450 / 450 Balance 566 / 566 General: Alert, Oriented x3, Cooperative, No apparent distress HEENT: Atraumatic, PERRLA, EOMI, Normocephalic Oral: Moist Mucosa Neck: Supple Lungs: Clear to auscultation, Normal air movement Cardiovascular: Regular rate, Regular Rhythm, Normal S1, Normal S2, No murmurs Abdomen: Bowel Sounds Present, Soft, Non Tender, Non-Distended, No Hepato- splenomegaly Extremities: Edema - trace bilateral Skin: No rashes, No breakdown Musculoskeletal: No Tenderness to Palpation of Joints or Extremities Lymphatic: No Cervical, Supraclavicular, or Inguinal Adenopathy Neurological: Cranial nerves II-XII grossly intact Psych/Mental Status: Normal Affect, Appropriate Laboratory Results 09/05/17 21:36: Troponin I < 0.015, TSH 1.38 09/06/17 00:38: Troponin I < 0.015 09/06/17 06:35: Sodium 143, Potassium 3.8, Chloride 111 H, Carbon Dioxide 27.0, Anion Gap 5, BUN 8, Creatinine 0.45 L, Estim Creat Clear Calc 36.08, Est GFR ( MDRD) Af Amer 174, Est GFR (MDRD) Non-Af 144, BUN/Creatinine Ratio 17.9, Glucose 92, Calcium 8.0 L 09/06/17 06:35: WBC 5.2, RBC 3.86 L, Hgb 12.0, Hct 37.0, MCV 95.9, MCH 31.1, MCHC 32.4, RDW 13.6, RDW Differential 45.9 H, Plt Count 158, MPV 11.2, Immature Gran % (Auto) 0.200, Neut % (Auto) 56.7, Lymph % (Auto) 28.6, Evangeline % (Auto) 9.8 , Eos % (Auto) 3.7, Baso % (Auto) 1.0, Absolute Neuts (auto) 2.9, Absolute Lymphs (auto) 1.48, Total Counted Not Reportable Current Medications Acetaminophen (Tylenol) 650 mg PO Q6H PRN PRN PRN Reason: Mild Pain (scale 0-3)/T>100.7 Last Admin: 09/06/17 10:40 Dose: 650 mg Amlodipine Besylate (Norvasc) 5 mg PO DAILY [facility] Last Admin: 09/06/17 08:45 Dose: 5 mg [facility] Last Admin: 09/06/17 08:45 Dose: 81 mg Atenolol (Tenormin (Beta Gokul)) 25 mg PO DAILY [facility] Last Admin: 09/06/17 08:46 Dose: 25 mg Atorvastatin Calcium (Lipitor) 20 mg PO QHS [facility] Last Admin: 09/05/17 23:06 Dose: 20 mg Calcium Carbonate (Os-[place] 500) 1,000 mg PO DAILY [facility] Last Admin: 09/06/17 10:40 Dose: 1,000 mg Carbidopa/Levodopa (Sinemet Cr) 1 tablet PO BID [facility] Last Admin: 09/06/17 10:41 Dose: 1 tablet Cholecalciferol (Vitamin D) 1,000 unit PO DAILY [facility] Last Admin: 09/06/17 08:44 Dose: 1,000 unit Clonazepam (Klonopin) 0.5 mg PO QHS [facility] Last Admin: 09/05/17 23:03 Dose: 0.5 mg Sodium Chloride () 1,000 mls @ 100 mls/hr IV .Q10H [facility] Last Admin: 09/06/17 08:49 Dose: 100 mls/hr Lisinopril (Zestril) 40 mg PO DAILY [facility] Magnesium Hydroxide (Milk Of Magnesia) 30 ml PO DAILY PRN PRN PRN Reason: Constipation Magnesium Oxide (Mag-Ox 400) 200 mg PO DAILY [facility] Last Admin: 09/06/17 08:46 Dose: 200 mg Multivitamins/Minerals (Multivitamin With Minerals) 1 tablet PO DAILY@0800 [facility] Last Admin: 09/06/17 08:47 Dose: 1 tablet Pantoprazole Sodium (Protonix) 20 mg PO DAILY [facility] Last Admin: 09/06/17 08:45 Dose: 20 mg Sodium Chloride () 5 - 30 ml IV UD PRN PRN Reason: SALINE FLUSH Medical Necessity - Tobacco Use Smoking Status: Never smoker Assessment/Plan 81-year-old female with past medical history of Parkinson's disease, hypertension, GERD comes in with complaints of dizziness 1. Dizziness secondary to orthostatic hypotension likely related to autonomic dysfunction from Parkinson's disease 2D echo shows EF of 45-50, moderate global hypokinesis of the left ventricle, treated via valve disease, RVSP was 32 Patient remains orthostatic, continue on IV fluids, recheck orthostatic vitals every shift 2. Hypertension, controlled, relatively hypotensive, would hold amlodipine, decrease atenolol to 12.5 mg p.o. daily, decrease lisinopril to 20 mg p.o. daily , continue to monitor blood pressures 3. Parkinson's disease, complicated by hallucinations, insomnia, on Sinemet, clonazepam 4. Hyperlipidemia, on statins 5. DVT PPx- Lovenox SC 6. Disposition: Pending PT/OT eval Code Visit Inpatient E&M: 40223 Subs Hosp L2
[2017-09-06] MEDS: Lisinopril 20 MG Tablet PO (15:29)
[2017-09-06] MEDS: clonazePAM 0.5 MG Tablet PO (22:00)
[2017-09-06] MEDS: Atorvastatin Calcium 20 MG Tablet PO (22:00)
[2017-09-07 02:00] VITALS: PULSE 65
[2017-09-07 03:41] VITALS: BP 146/76; PULSE 73; RESP 16; TEMP 37.2; O2SAT 94
[2017-09-07] MEDS: 0.9% Normal Saline 1,000 ML 100 ML IV (05:33)
[2017-09-07] MEDS: Aspirin E.C. 81 MG Tablet PO (09:00)
[2017-09-07] MEDS: Enoxaparin 40 MG/0.4 ML Syringe SC (09:00)
[2017-09-07] MEDS: Multivitamins,Ther W-Minerals Tablet 1 TABLET PO (09:00)
[2017-09-07] MEDS: CARBIDOPA/LEVODOPA CR 50/200 Tablet PO (09:01)
[2017-09-07] MEDS: Magnesium Oxide 400 MG Tablet 200 MG PO (09:01)
[2017-09-07] MEDS: Atenolol 25 MG Tablet 12.5 MG PO (09:01)
[2017-09-07] MEDS: Calcium (Elemental) 500 MG Tablet 1000 MG PO (09:02)
[2017-09-07] MEDS: Pantoprazole Sodium 20 MG Tablet PO (09:02)
[2017-09-07] MEDS: Lisinopril 20 MG Tablet PO (09:04)
[2017-09-07 09:41] VITALS: BP 134/74; PULSE 79; RESP 16; TEMP 36.8; O2SAT 94
[2017-09-07 10:01] VITALS: PULSE 75
--- NOTE | 2017-09-07 10:47 | DCINST_ITS ---
- Discharge Diagnoses Reason(s) for Visit for Discharge Instructions: Chronic dizziness You will use the following diet at home:: Regular Your food should be the consistency of: Regular Your liquids should be the consistency of: Regular/Thin Discharge Activity: Return to Normal Activity Additional Instructions: You are dizzy because your blood pressure has been dropping when you get up. You should continue to hydrate yourself. You should try to get up from sitting position slowly by sitting at the edge of the bed first so you don't get dizzy. You should wear your DOMINIC hoses everytime especially when you have to stand up. You should always use your walker when walking. Allergies/Adverse Reactions: Allergies adhesive Allergy (Verified 09/05/17 16:27) Rash ciprofloxacin [From Cipro] Allergy (Verified 09/05/17 16:27) Rash latex Allergy (Verified 09/05/17 16:27) Rash Medications to take at Discharge Amlodipine [Norvasc] 5 mg PO DAILY 04/19/14 Cholecalciferol (VIT D3) [Vitamin D3] 1,000 unit PO DAILY 04/19/14 Magnesium 250 mg PO DAILY 04/19/14 Acetaminophen [Tylenol Tablet] 650 mg PO Q6H PRN PRN #30 tablet 04/20/14 Aspirin [Lo-Dose Aspirin EC] 81 mg PO DAILY 05/22/17 Atorvastatin Calcium [Lipitor] 20 mg PO QHS 05/22/17 Carbidopa/Levodopa 50/200 [Sinemet CR 50/200] 1 tab PO BID 05/22/17 Clonazepam [Klonopin] 0.5 mg PO QHS 05/22/17 Omeprazole 20 mg PO DAILY 05/22/17 Calcium Carbonate [Calcium] 1,200 mg PO DAILY 09/05/17 Mv-Min/FA/Vit K/Lycop/Lut/Zeax [Ocuvite Eye Plus Multi Tablet] 1 each PO DAILY 09/05/17 Atenolol [Tenormin (beta gilbert)] 12.5 mg PO DAILY #30 tab 09/07/17 Lisinopril [Zestril] 20 mg PO DAILY #30 tab 09/07/17 The following prescriptions were given: Atenolol [Tenormin (beta gilbert)] 12.5 mg PO DAILY #30 tab Lisinopril [Zestril] 20 mg PO DAILY #30 tab Primary Care Physician: Tin Ignacio MD [Primary Care Provider] - Please follow up with your Primary Care Physician in: within 2 weeks Test Results: Test results from this visit will be discussed in further detail at your follow- up appointment, if applicable. When: Follow-up with Dr. Ruffin in 1 week Proposed Discharge Date: 09/07/17
--- NOTE | 2017-09-07 10:47 | PCM.DC.SUM ---
Discharge Date and Diagnosis Date of Admission: 09/05/17 Date of Discharge: 09/07/17 - Primary Discharge Diagnosis Dizziness secondary to orthostatic hypotension Orthostatic hypotension secondary to autonomic dysfunction from Parkinson's disease - Secondary Discharge Diagnosis Chronic Problems Parkinson disease (Chronic) Hypertension (Chronic) GERD (gastroesophageal reflux disease) (Chronic) Chronic back pain (Chronic) Syncopal episodes (Chronic) Hospital Course and Treatment Imaging Results: Clinical Impression(s) from Imaging Studies Brain CT 09/05/17 16:55 IMPRESSION: Chronic involutional changes of the brain. Electronically Signed: Michael Inman MD at 19:06 EDT , Service support , Chest X-Ray 09/05/17 18:09 IMPRESSION: 1. Mild cardiomegaly. 2. Calcified plaques of the aortic arch. 3. No acute cardiopulmonary disease process is seen. Chest findings are stable in the interval. Electronically Signed: Michael Inman MD at 19:02 EDT , Service support , None Operations: None, - - OR 04/19/[address] Hameed s/p insertion multiple cannulated screws to left hip for incomplete subcapital fracture left hip. Procedures: None Summary of Care Provided: 81-year-old female with past medical history of Parkinson's disease, hypertension, GERD comes in with complaints of dizziness which has been ongoing for a couple of years. Patient admits to feeling dizzy when she stands up such that she has to sit down or have the feeling of passing out. She has also been having worsening confusion and hallucination in the last few weeks. She was found to be orthostatic in the ED, started on IV fluids. Recheck orthostatics shows some improvement especially when patient stands up. Patient was given to thigh DOMINIC hoses and IV fluids were continued. She follows up with neurology, Dr. Ruffin in the outpatient. Changes were made to home medications with decreasing atenolol and lisinopril. Her amlodipine was continued. Discussed extensively with her family and the patient, she will follow up with Dr. Ruffin within a week for possible start of fludrocortisone or some other medication for autonomic orthostatic hypotension. In the hospital, her medications for hyperlipidemia, Parkinson's disease complicated by hallucinations and insomnia were continued. Discharge Diet: No Restrictions Discharge Activity: Return to Normal Activity Home Medications: Medications to take at Discharge Amlodipine [Norvasc] 5 mg PO DAILY 04/19/14 Cholecalciferol (VIT D3) [Vitamin D3] 1,000 unit PO DAILY 04/19/14 Magnesium 250 mg PO DAILY 04/19/14 Acetaminophen [Tylenol Tablet] 650 mg PO Q6H PRN PRN #30 tablet 04/20/14 Aspirin [Lo-Dose Aspirin EC] 81 mg PO DAILY 05/22/17 Atorvastatin Calcium [Lipitor] 20 mg PO QHS 05/22/17 Carbidopa/Levodopa 50/200 [Sinemet CR 50/200] 1 tab PO BID 05/22/17 Clonazepam [Klonopin] 0.5 mg PO QHS 05/22/17 Omeprazole 20 mg PO DAILY 05/22/17 Calcium Carbonate [Calcium] 1,200 mg PO DAILY 09/05/17 Mv-Min/FA/Vit K/Lycop/Lut/Zeax [Ocuvite Eye Plus Multi Tablet] 1 each PO DAILY 09/05/17 Atenolol [Tenormin (beta gilbert)] 12.5 mg PO DAILY #30 tab 09/07/17 Lisinopril [Zestril] 20 mg PO DAILY #30 tab 09/07/17 Following Prescrptions Were Given to Patient: Atenolol [Tenormin (beta gilbert)] 12.5 mg PO DAILY #30 tab Lisinopril [Zestril] 20 mg PO DAILY #30 tab Primary Care Physician: Tin Ignacio MD [Primary Care Provider] - Please follow up with your Primary Care Physician in: within 2 weeks When: Follow-up with Dr. Ruffin in 1 week Disposition: Home with Home Health Minutes spent on discharge:: 45 Medical Necessity - Tobacco Use Smoking Status: Never smoker Meaningful Use Info Meaningful Use Diagnoses (Choose all that apply): None applicable Code Visit Inpatient E&M: 49015 Disch Hosp
[2017-09-07 11:01] VITALS: BP 110/61; BP 140/76; BP 148/73; PULSE 74; PULSE 76; PULSE 86
[2017-09-07] MEDS: Acetaminophen 325 MG Tablet 650 MG PO (11:10)
--- NOTE | 2017-09-08 10:05 | CASEMGMT ---
RN CM Note. Per Dr. Heard, pt was discharged yesterday, however she would like Home health for RN, PT/OT, SW. is interested in Assisted Living in near future. Call/message left for [facility] Elen ALDANA LPN requesting referral evaluation. Artem LAMN RN ACM
== END 2017-09-07 14:08 | disposition home health service (06) ==
LOC: ED 18:29 → MS3 20:46
PROVIDERS: Admitting Provider Internal Medicine; Emergency Provider Emergency Medicine; Family Provider Internal Medicine; PCP Internal Medicine; Visit Provider Internal Medicine
DX: I95.1 Orthostatic hypotension (principal); G20 Parkinson's disease; I10 Essential (primary) hypertension; K21.9 Gastro-esophageal reflux disease without esophagitis; G89.29 Other chronic pain; Z79.899 Other long term (current) drug therapy; Z79.82 Long term (current) use of aspirin; R44.2 Other hallucinations; R94.31 Abnormal electrocardiogram [ECG] [EKG]; I08.1 Rheumatic disorders of both mitral and tricuspid valves; I51.7 Cardiomegaly; I44.7 Left bundle-branch block, unspecified; R26.81 Unsteadiness on feet; R29.700 NIHSS score 0
CPT/HCPCS: 36415; 70450; 71045; 80048; 81001; 82962; 84443; 84484; 85025; 85610; 85730; 93005; 93306; 96360; 96361; 96372; 97161; 97166; 99218; 99283; J7030; J7050; A4216; G0378

== ENCOUNTER 2017-12-11 10:44 | Emergency (ER) | payer MEDICARE, SELFPAY ==
[2017-12-11 10:45] VITALS: BP 107/58; PULSE 66; RESP 14; TEMP 35.8; O2SAT 97; BMI 27.8
--- NOTE | 2017-12-11 11:16 | CT_ITS ---
STUDY: CT BRAIN WITHOUT CONTRAST REASON FOR EXAM: Female, 82 years old. Left facial laceration following a fall. RADIATION DOSAGE (If Supplied By Facility): CTDIvol = ( 44.99 ) mGy, DLP = ( 796.11 ) mGycm TECHNIQUE: Transaxial CT imaging of the brain was performed without administration of intravenous contrast material. Individualized dose optimization techniques were used for this CT. COMPARISON: Comparison is made with prior study dated September 05, 2017. FINDINGS: Hyperostosis frontalis internus. There is evidence of a scalp hematoma overlying the left frontal bone. There is mild cerebral atrophy with widening of the extra-axial spaces and ventricular dilatation. There are areas of decreased attenuation within the white matter tracts of the supratentorial brain, consistent with microvascular disease changes. Normal basal ganglia and thalami. Normal brainstem. Normal cerebellum. There is no intracranial hemorrhage. There are no findings of an acute ischemic infarction. Atherosclerotic calcification of the cavernous portions of the internal carotid arteries bilaterally. Normal visualized paranasal sinuses. CT/Brain/Head without Contrast IMPRESSION: Chronic involutional changes of the brain. Scalp hematoma overlying the left frontal bone. Electronically Signed: Jigar Hodgson MD at 12:30 EDT Tel [phone], Service support ,
--- NOTE | 2017-12-11 11:16 | CT_ITS ---
STUDY: CT CERVICAL SPINE WITHOUT CONTRAST REASON FOR EXAM: Female, 82 years old. History of fall. Left facial laceration. RADIATION DOSAGE (If Supplied By Facility): CTDIvol = ( 17.84 ) mGy, DLP = ( 359.67 ) mGycm TECHNIQUE: High resolution transaxial imaging was performed without contrast material. Sagittal and coronal images were reconstructed. Individualized dose optimization techniques were used for this CT. COMPARISON: None FINDINGS: Normal craniovertebral junction. There are degenerative changes of the anterior atlantoaxial articulation. Normal odontoid process. Normal cervical lordosis. Normal vertebral bodies and posterior osseous elements. C2-3: Normal endplates. Normal disc height and morphology. Normal central canal and intervertebral neuroforamina. C3-4: Mild degree of disc space narrowing. Facet joint osteoarthritis. There is hypertrophy of the right facet joint causing mild degree of right neural foraminal stenosis. C4-5: Moderate degree of disc space narrowing. Facet joint osteoarthritis. Uncovertebral arthrosis. No significant stenosis is seen. C5-6: Moderate degree of disc space narrowing. Spondylosis. Facet joint osteoarthritis and hypertrophy. C6-7: Normal endplates. Normal disc height and morphology. Normal central canal and intervertebral neuroforamina. C7-T1: Normal endplates. Normal disc height and morphology. Normal central canal and intervertebral neuroforamina. Normal visualized soft tissue structures. CT/Spine Cervical without Contras IMPRESSION: Multilevel degenerative changes, as described above. Electronically Signed: Jigar Hodgson MD at 12:51 EDT Tel [phone], Service support ,
--- NOTE | 2017-12-11 11:16 | EKG12_ITS ---
Test Reason : Blood Pressure : / mmHG Vent. Rate : 062 BPM Atrial Rate : 062 BPM P-R Int : 198 ms QRS Dur : 152 ms QT Int : 504 ms P-R-T Axes : 043 -16 085 degrees QTc Int : 511 ms Normal sinus rhythm Left bundle branch block Abnormal ECG Confirmed by KELLE EDEN ([id number]), editor city IMANI ALEX ([id number]) on 12/16/2017 8:59:45 AM Referred By: SHANNA Confirmed By:KELLE EDEN
--- NOTE | 2017-12-11 11:58 | RAD_ITS ---
STUDY: X-RAY - LEFT SHOULDER REASON FOR EXAM: Female, 82 years old. Left shoulder pain following a fall. TECHNIQUE: 4 view(s) of the shoulder. COMPARISON: None. FINDINGS: There is mild degenerative arthrosis of the glenohumeral articulation. There is degenerative arthrosis of the acromioclavicular joint without inferior osseous spur formation. Normal acromion. Normal humeral head and visualized proximal humerus. The soft tissue structures are unremarkable. Increased markings at the left lung base suggestive of atelectasis. RAD/Shoulder min 2 Views IMPRESSION: Degenerative changes of the left shoulder joint and left acromioclavicular joint. Electronically Signed: Jigar Hodgson MD at 13:06 EDT Tel [phone], Service support ,
--- NOTE | 2017-12-11 11:58 | RAD_ITS ---
STUDY: X-RAY - LEFT WRIST REASON FOR EXAM: Female, 82 years old. Left wrist pain following a fall. TECHNIQUE: 3 view(s) of the wrist were obtained. COMPARISON: None. FINDINGS: There is demineralization of the radius and ulna. Normal radiocarpal articulation. Normal distal radioulnar articulation. Normal carpal bones. Normal carpal articulations. There is degenerative arthrosis of the carpometacarpal articulation of the thumb. Normal second through fifth carpometacarpal articulations. Normal visualized metacarpal bones. Soft tissue swelling. RAD/Wrist min 3 Views IMPRESSION: Degenerative changes. Soft tissue swelling. Electronically Signed: Jigar Hodgson MD at 13:07 EDT Tel [phone], Service support ,
[2017-12-11 12:29] VITALS: O2SAT 96
[2017-12-11] MEDS: Acetaminophen 500 MG Tablet 1000 MG PO (12:49)
--- NOTE | 2017-12-11 13:35 | ED.VISSUMM ---
- ER Visit Summary Date of Service: 12/11/17 Chief Complaint: Fall History of Present Illness: The patient is a 82 F who fell at her assisted living residence today. Striking her head I believe on the ground or on furniture. states that she does not remember the impact but remembers falling. She states that she has pain in the left side of her face. He notes laceration and he assumes is from the glasses that she was wearing. She has dementia and Parkinson's. She had a recent fall when she fell onto the doorknob causing bruising of her left shoulder region and left wrist. Physical Examination: Afebrile vital signs stable Gen: Well-nourished well-developed Head: Normocephalic left forehead hematoma there is a 1 cm facial laceration just lateral to the left periorbital region. No ocular trauma noted. Eyes: Perrl EOMI ENT: TMs clear no rhinorrhea moist mucous membranes Neck: Supple no lymphadenopathy no JVD nontender CVS: Regular rate rhythm no murmurs normal S1-S2 Respiratory: No distress clear to auscultation bilaterally chest nontender Abdomen: Soft nontender nondistended normal bowel sounds no masses Back: Nontender Extremity: Nontender no edema Skin: Normal color no rash Neuro: alert presently demented CN II-XII intact normal strength sensation reflexes gait cerebellar Psych: Normal affect normal mood Test Results: CT head and C-spine were negative for acute. Wrist and shoulder films were obtained which were negative. EKG showed a sinus rhythm with left bundle branch block. Emergency Department Course and Treatment: The wound was washed with Shur-Clens and Dermabond it closed. She received Tylenol for pain. Wound care discussed with and family return if worsening or concerns. Impression: 1. 1 severe facial laceration with repair 2. Fall 3. Forehead hematoma 4. Left arm contusion This note was generated with [employer] dictation software. It may contain incorrect words, spelling, and punctuation that were not noted in review of the chart prior to signing ED Disposition - Plan for ED Patient: Disposition: Home or Assisted Living Chief Complaint: Fall Instructions: ED Head Injury Closed, ED Hematoma, ED Laceration Facial Skin Glue Referrals: Tin Ignacio MD [Primary Care Provider] - As Needed
[2017-12-11 14:03] VITALS: BP 116/58; PULSE 81; RESP 16; O2SAT 96
--- NOTE | 2017-12-11 14:04 | ED.RN ---
REVIEWED D/C INSTRUCTIONS, FOLLOW UP CARE, AND S/S THAT WOULD WARRANT A RETURN TO THE ED WITH PT. PT VERBALIZED AN UNDERSTANDING AND DENIES FURTHER QUESTIONS FOR THIS RN. PT SKIN P/W/D, RESP EVEN AND UNLABORED, PT A&O X 3, NO DISTRESS NOTED. PT ASSISTED OUT OF ED IN WHEELCHAIR.
== END 2017-12-11 14:05 | disposition home or self-care (01) ==
PROVIDERS: Emergency Provider Emergency Medicine; Family Provider Internal Medicine; PCP Internal Medicine
DX: S01.81XA Laceration without foreign body of other part of head, initial encounter (principal); S40.022A Contusion of left upper arm, initial encounter; W19.XXXA Unspecified fall, initial encounter; Y93.9 Activity, unspecified; Y92.129 Unspecified place in nursing home as the place of occurrence of the external cause; Y99.9 Unspecified external cause status; G31.83 Neurocognitive disorder with Lewy bodies; F02.80 Dementia in other diseases classified elsewhere, unspecified severity, without behavioral disturbance, psychotic disturbance, mood disturbance, and anxiety; I44.7 Left bundle-branch block, unspecified; I10 Essential (primary) hypertension; E78.00 Pure hypercholesterolemia, unspecified; K21.9 Gastro-esophageal reflux disease without esophagitis
CPT/HCPCS: 12011; 70450; 72125; 73030; 73110; 93005; 99283

== ENCOUNTER → 2018-05-03 17:35 | Outpatient (REF) | payer MEDICARE, SELFPAY ==
[2018-05-04 08:35] LABS: Mucous, Urine 0 SEEN /hpf (<or=2+)
[2018-05-04 08:48] LABS: Color, Urine Straw (Yellow); Glucose, Dipstick Normal (Normal); Ketone-Dipstick Negative (Negative); Leukocyte Esterase-Dipstick 500 /ul (Negative); Nitrite-Dipstick Positive (Negative); Occult Blood-Urine 25 /ul (Negative); Protein-Dipstick 30 mg/dl (Negative); Urine Bilirubin Dipstick Negative (Negative); Urine Clarity Cloudy (Clear); Urine Urobilinogen Normal (Normal); Urine pH 6.5 (5.0 - 8.0)
[2018-05-04 08:54] LABS: Bacteria 2+ /hpf (None Seen); Red Blood Cells-Urine 0-5 SEEN /hpf (0-5); Squamous Epithelial Cells - UA 0-5 SEEN /hpf (5-10); White Blood Cells 50-100 SEEN /hpf (0-5)
== END ==
LOC: OLS.AVEB 17:35
PROVIDERS: Visit Provider Internal Medicine
DX: N39.0 Urinary tract infection, site not specified (principal)
CPT/HCPCS: 81001; 87086; 87088; 87186

== ENCOUNTER 2018-06-14 18:32 | Observation (INO) | payer MEDICARE, SELFPAY ==
[2018-06-14] VITALS (12 sets, daily range): BP systolic 124–152; BP diastolic 57–80; PULSE 60–73; RESP 13–18; TEMP 36.6–36.7; O2SAT 92–94; BMI 31.4; BMI 28.6; BMI 31.5
--- NOTE | 2018-06-14 18:36 | CT_ITS ---
We are attempting to reach Rosales Hernandez MD to discuss findings. An addendum with communication details will be sent when the communication is complete. STUDY: CT BRAIN WITHOUT CONTRAST REASON FOR EXAM: Female, 82 years old. Facial droop RADIATION DOSAGE (If Supplied By Facility): CTDIvol = ( 20.80 ) mGy, DLP = ( 404.42 ) mGycm TECHNIQUE: Transaxial CT imaging of the brain was performed without administration of intravenous contrast material. Individualized dose optimization techniques were used for this CT. COMPARISON: 12/11/2017 FINDINGS: Normal soft tissue structures. Hyperostosis frontalis interna. Bilateral lens replacements. Normal size ventricles and extra-axial spaces for the patient's age. There are areas of decreased attenuation within the white matter tracts of the supratentorial brain, consistent with microvascular disease changes. Normal age-related changes of the basal ganglia. Normal brainstem. Normal cerebellum. There is no intracranial hemorrhage. There are no findings of an acute ischemic infarction. Normal visualized paranasal sinuses. CT/Brain/Head without Contrast IMPRESSION: No CT evidence of acute infarct or hemorrhage. If there is clinical concern for hyperacute ischemia that is not evident by CT, MRI should be considered if possible. Electronically Signed: Sterling Child MD at 18:55 EDT Tel , Service support ,
--- NOTE | 2018-06-14 18:36 | EKG12_ITS ---
Test Reason : STROKE Blood Pressure : / mmHG Vent. Rate : 068 BPM Atrial Rate : 068 BPM P-R Int : 198 ms QRS Dur : 152 ms QT Int : 502 ms P-R-T Axes : 081 -10 093 degrees QTc Int : 533 ms Sinus rhythm with PVC's Left bundle branch block Abnormal ECG Confirmed by ARIANNE POST, ISABEL ([id number]), website/blog editor MONTSE JULIAN ([id number]) on 06/16/2018 11:15:14 AM Referred By: JAEL Confirmed By:ISABEL ACUÑA MD
--- NOTE | 2018-06-14 18:37 | ED.VIS.STROK ---
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 Negative for: Headache, Vomiting, Chest Pain Narrative: Patient is an 82-year-old woman. There was a significant family gathering today. Patient took a nap at 1400. awoke her at 1600. He noted she was having trouble getting up from the sulfa and using her extremities. Also noted problems with speech and facial droop. Paramedics noted facial droop and weakness left side. She would not speak for them. She complains of dizziness, which she cannot define and nausea. Prior similar symptoms: No Recent Illness/Hospitalization: No - Past Medical History (1) GERD (gastroesophageal reflux disease) Status: Chronic (2) Hypertension Status: Chronic (3) Parkinson disease Status: Chronic (4) Syncopal episodes Status: Chronic Past Medical History - Allergies and Home Meds Allergies/Adverse Reactions: Allergies No Known Allergies Allergy (Verified 06/14/18 18:50) Primary Care Physician: Tin Ignacio MD [Primary Care Provider] - Prior records reviewed: Yes Surgical History: appendectomy, cholecystectomy, - - Bladder suspension history, L hip repair/pinning s/p fracture. Lives: Spouse/ Significant Other Smoking Status: Never smoker Alcohol: None - Family History Maternal Family History: Reports: No pertinent history Paternal Family History: Reports: No pertinent history Review of Systems General: Denies: Chills, Fever, Sweats Eyes: Denies: Visual changes - bilaterally, Diplopia ENT: Denies: Rhinorrhea, Sore throat Cardiovascular: Denies: Chest pain, Palpitations Respiratory: Denies: Dyspnea, Cough, Dyspnea on exertion Gastrointestinal: Reports: Nausea. Denies: Abdominal pain, Vomiting, Diarrhea, Melena, Hematochezia Genitourinary: Denies: Dysuria, Hematuria, Frequency Musculoskeletal: Denies: Myalgias, Arthralgias, Neck pain, Back pain, Extremity Pain Skin: Denies: Rash, Wounds Neurological: Reports: - - Dizziness. Denies: Headache, Weakness, Numbness Hematologic: Denies: Easy bruising, Easy bleeding Allergy: Denies: Uticaria, Swelling of the mouth Physical Exam - NIH Stroke Scale 1a Level of Consciousness: 1 1b LOC Questions (Score 2 if aphasic/stupor): 0 1c LOC Commands (Only score 1st attempt): 0 2 Best Gaze (If aphasic, use reflexive mvmts.): 0 3 Visual: 0 4 Facial Palsy: 0 5 Motor Arm Right (UN = amputation/fusion): 0 5 Motor Arm Left: 1 6 Motor Leg Right: 0 6 Motor Leg Left: 0 7 Limb ataxia (Only + if out of proportion): 0 8 Sensory (Aphasia/stupor=0 or 1, coma=2): 0 9 Best Language: 0 10 Dysarthria (mute, coma=2, intubated=UN): 0 11 Extinction and Inattention (only scored if +): 1 Total Score: 3 General: Well nourished, Well developed, Obese Head: Normocephalic, Atraumatic Eyes: Perrl, EOMI. Negative for: Pale conjunctiva, Scleral icterus ENT: Moist mucous membranes, No rhinorrhea, TM's clear Neck: Supple, Nontender, No lymphadenopathy, No JVD Cardiovascular: Regular rate, Regular rhythm, No murmurs, Normal S1, Normal S2 Respiratory: No distress, CTA bilaterally, Chest nontender Abdomen: Soft, Nontender, Nondistended, Normal bowel sounds, No masses Rectal: Deferred Back: Nontender, Normal Inspection. Negative for: CVA tenderness Extremities: Nontender, No edema Skin: Normal color, No rash, No Trauma Neurological: Oriented x3, Cranial nerves II-XII grossly intact, Normal DTR - There is no clonus or Babinski sign, - - Gait was not tested. Negative for: Alert, Normal Strength, Normal Sensation Psychological: - - Affect is flat. She has a masked face. Suspect this is secondary to Parkinson's disease. Diagnostic/Tx/Re-eval Impressions Brain CT 06/14/18 18:36 IMPRESSION: No CT evidence of acute infarct or hemorrhage. If there is clinical concern for hyperacute ischemia that is not evident by CT, MRI should be considered if possible. Electronically Signed: Sterling Child MD at 18:55 EDT Tel , Service support , ADDENDUM: 06/14/18 1909 IMPRESSION: No CT evidence of acute infarct or hemorrhage. If there is clinical concern for hyperacute ischemia that is not evident by CT, MRI should be considered if possible. N.B. : The above information has been verbally conveyed by Sterling Child MD to Dr. David MD, on 06/14/2018 19:02:19 (ET). Electronically Signed: Sterling Child MD at 18:55 EDT Tel , Service support , 06/14/18 18:36 Brain/Head without Contrast [CT] Stat Laboratory Results 06/14/18 06/14/18 06/14/18 18:39 18:39 18:39 WBC 6.7 RBC 4.24 Hgb 13.0 Hct 40.6 MCV 95.8 MCH 30.7 MCHC 32.0 RDW 12.9 RDW Differential 45.2 H Plt Count 159 MPV 10.2 Immature Gran % (Auto) 0.100 Neut % (Auto) 55.9 Lymph % (Auto) 28.1 [place] % (Auto) 9.8 Eos % (Auto) 5.7 H Baso % (Auto) 0.4 Absolute Neuts (auto) 3.8 Absolute Lymphs (auto) 1.89 Total Counted Not Reportable PT 13.4 INR 1.0 APTT 32.1 Sodium 141 Potassium 3.9 Chloride 107 Carbon Dioxide 31.0 Anion Gap 3 L BUN 8 Creatinine 0.57 Est GFR (MDRD) Af Amer 130 Est GFR (MDRD) Non-Af 107 BUN/Creatinine Ratio 13.9 Glucose 114 H Calcium 8.6 Troponin I < 0.015 POC Glucose 06/14/18 18:47 WBC RBC Hgb Hct MCV MCH MCHC RDW RDW Differential Plt Count MPV Immature Gran % (Auto) Neut % (Auto) Lymph % (Auto) [place] % (Auto) Eos % (Auto) Baso % (Auto) Absolute Neuts (auto) Absolute Lymphs (auto) Total Counted PT INR APTT Sodium Potassium Chloride Carbon Dioxide Anion Gap BUN Creatinine Est GFR (MDRD) Af Amer Est GFR (MDRD) Non-Af BUN/Creatinine Ratio Glucose Calcium Troponin I POC Glucose 118 H - Rhythm Strip Rhythm Strip: Sinus Rhythm Rate: 82 Ectopy: None - EKG Initial EKG Interpretation: Sinus Rhythm - Ventricular rate is 68. There is premature atrial beats versus a variant beats. There is evidence of left bundle branch block. PA interval is normal. [place] to the left. - Medical Decision Making Stroke Team Activated: No - Castillo greater than 4.5 hours and not a TPA candidate at this facility. IV TPA Administered: No Patient with left-sided deficit that has improved markedly. NIH is 3. Will obtain CT of the head. She will require admission for further work-up. Since she is not a thrombotic candidate and symptoms are minimal CTA of the head and neck was not ordered prior to basic metabolic panel results to assess renal function. ED Disposition - Plan for ED Patient: Disposition: Acute Care Hospital [facility] Diagnosis: CVA (cerebral vascular accident), Hypertension, Parkinson disease Referrals: Tin Ignacio MD [Primary Care Provider] -
--- NOTE | 2018-06-14 18:41 | ED.DCSUM_ITS ---
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 Negative for: Headache, Vomiting, Chest Pain Narrative: Patient is an 82-year-old woman. There was a significant family gathering today. Patient took a nap at 1400. awoke her at 1600. He noted she was having trouble getting up from the sulfa and using her extremities. Also noted problems with speech and facial droop. Paramedics noted facial droop and weakness left side. She would not speak for them. She complains of dizziness, which she cannot define and nausea. Prior similar symptoms: No Recent Illness/Hospitalization: No - Past Medical History (1) GERD (gastroesophageal reflux disease) Status: Chronic (2) Hypertension Status: Chronic (3) Parkinson disease Status: Chronic (4) Syncopal episodes Status: Chronic Past Medical History - Allergies and Home Meds Allergies/Adverse Reactions: Allergies No Known Allergies Allergy (Verified 06/14/18 18:50) Primary Care Physician: Tin Ignacio MD [Primary Care Provider] - Prior records reviewed: Yes Surgical History: appendectomy, cholecystectomy, - - Bladder suspension history, L hip repair/pinning s/p fracture. Lives: Spouse/ Significant Other Smoking Status: Never smoker Alcohol: None - Family History Maternal Family History: Reports: No pertinent history Paternal Family History: Reports: No pertinent history Review of Systems General: Denies: Chills, Fever, Sweats Eyes: Denies: Visual changes - bilaterally, Diplopia ENT: Denies: Rhinorrhea, Sore throat Cardiovascular: Denies: Chest pain, Palpitations Respiratory: Denies: Dyspnea, Cough, Dyspnea on exertion Gastrointestinal: Reports: Nausea. Denies: Abdominal pain, Vomiting, Diarrhea, Melena, Hematochezia Genitourinary: Denies: Dysuria, Hematuria, Frequency Musculoskeletal: Denies: Myalgias, Arthralgias, Neck pain, Back pain, Extremity Pain Skin: Denies: Rash, Wounds Neurological: Reports: - - Dizziness. Denies: Headache, Weakness, Numbness Hematologic: Denies: Easy bruising, Easy bleeding Allergy: Denies: Uticaria, Swelling of the mouth Physical Exam - NIH Stroke Scale 1a Level of Consciousness: 1 1b LOC Questions (Score 2 if aphasic/stupor): 0 1c LOC Commands (Only score 1st attempt): 0 2 Best Gaze (If aphasic, use reflexive mvmts.): 0 3 Visual: 0 4 Facial Palsy: 0 5 Motor Arm Right (UN = amputation/fusion): 0 5 Motor Arm Left: 1 6 Motor Leg Right: 0 6 Motor Leg Left: 0 7 Limb ataxia (Only + if out of proportion): 0 8 Sensory (Aphasia/stupor=0 or 1, coma=2): 0 9 Best Language: 0 10 Dysarthria (mute, coma=2, intubated=UN): 0 11 Extinction and Inattention (only scored if +): 1 Total Score: 3 General: Well nourished, Well developed, Obese Head: Normocephalic, Atraumatic Eyes: Perrl, EOMI. Negative for: Pale conjunctiva, Scleral icterus ENT: Moist mucous membranes, No rhinorrhea, TM's clear Neck: Supple, Nontender, No lymphadenopathy, No JVD Cardiovascular: Regular rate, Regular rhythm, No murmurs, Normal S1, Normal S2 Respiratory: No distress, CTA bilaterally, Chest nontender Abdomen: Soft, Nontender, Nondistended, Normal bowel sounds, No masses Rectal: Deferred Back: Nontender, Normal Inspection. Negative for: CVA tenderness Extremities: Nontender, No edema Skin: Normal color, No rash, No Trauma Neurological: Oriented x3, Cranial nerves II-XII grossly intact, Normal DTR - There is no clonus or Babinski sign, - - Gait was not tested. Negative for: Alert, Normal Strength, Normal Sensation Psychological: - - Affect is flat. She has a masked face. Suspect this is secondary to Parkinson's disease. Diagnostic/Tx/Re-eval Impressions Brain CT 06/14/18 18:36 IMPRESSION: No CT evidence of acute infarct or hemorrhage. If there is clinical concern for hyperacute ischemia that is not evident by CT, MRI should be considered if possible. Electronically Signed: Sterling Child MD at 18:55 EDT Tel , Service support , ADDENDUM: 06/14/18 1909 IMPRESSION: No CT evidence of acute infarct or hemorrhage. If there is clinical concern for hyperacute ischemia that is not evident by CT, MRI should be considered if possible. N.B. : The above information has been verbally conveyed by Sterling Child MD to Dr. David MD, on 06/14/2018 19:02:19 (ET). Electronically Signed: Sterling Child MD at 18:55 EDT Tel , Service support , 06/14/18 18:36 Brain/Head without Contrast [CT] Stat Laboratory Results 06/14/18 06/14/18 06/14/18 18:39 18:39 18:39 WBC 6.7 RBC 4.24 Hgb 13.0 Hct 40.6 MCV 95.8 MCH 30.7 MCHC 32.0 RDW 12.9 RDW Differential 45.2 H Plt Count 159 MPV 10.2 Immature Gran % (Auto) 0.100 Neut % (Auto) 55.9 Lymph % (Auto) 28.1 [place] % (Auto) 9.8 Eos % (Auto) 5.7 H Baso % (Auto) 0.4 Absolute Neuts (auto) 3.8 Absolute Lymphs (auto) 1.89 Total Counted Not Reportable PT 13.4 INR 1.0 APTT 32.1 Sodium 141 Potassium 3.9 Chloride 107 Carbon Dioxide 31.0 Anion Gap 3 L BUN 8 Creatinine 0.57 Est GFR (MDRD) Af Amer 130 Est GFR (MDRD) Non-Af 107 BUN/Creatinine Ratio 13.9 Glucose 114 H Calcium 8.6 Troponin I < 0.015 POC Glucose 06/14/18 18:47 WBC RBC Hgb Hct MCV MCH MCHC RDW RDW Differential Plt Count MPV Immature Gran % (Auto) Neut % (Auto) Lymph % (Auto) [place] % (Auto) Eos % (Auto) Baso % (Auto) Absolute Neuts (auto) Absolute Lymphs (auto) Total Counted PT INR APTT Sodium Potassium Chloride Carbon Dioxide Anion Gap BUN Creatinine Est GFR (MDRD) Af Amer Est GFR (MDRD) Non-Af BUN/Creatinine Ratio Glucose Calcium Troponin I POC Glucose 118 H - Rhythm Strip Rhythm Strip: Sinus Rhythm Rate: 82 Ectopy: None - EKG Initial EKG Interpretation: Sinus Rhythm - Ventricular rate is 68. There is premature atrial beats versus a variant beats. There is evidence of left bundle branch block. ID interval is normal. [place] to the left. - Medical Decision Making Stroke Team Activated: No - Castillo greater than 4.5 hours and not a TPA candidate at this facility. IV TPA Administered: No Patient with left-sided deficit that has improved markedly. NIH is 3. Will obtain CT of the head. She will require admission for further work-up. Since she is not a thrombotic candidate and symptoms are minimal CTA of the head and neck was not ordered prior to basic metabolic panel results to assess renal function. ED Disposition - Plan for ED Patient: Disposition: Acute Care Hospital [facility] Diagnosis: CVA (cerebral vascular accident), Hypertension, Parkinson disease Referrals: Tin Ignacio MD [Primary Care Provider] -
[2018-06-14 18:45] LABS: Absolute Lymphocyte Count 1.89 X10^3/ul (0.83-4.51); Absolute Neutrophil Count 3.8 X10^3/uL (2.0-7.7); Basophil# 0.03 X10^3/uL; Basophil% 0.4 % (0-1); Eosinophil# 0.38 X10^3/uL; Eosinophils% 5.7 % (0-5); Hematocrit 40.6 % (37-47); Lymphocyte # 1.89 X10^3/ul (4.0); Lymphocyte % 28.1 % (19-41); Mean Corpuscular Hgb 30.7 pg (27.0-32.0); Mean Corpuscular Volume 95.8 fL (81-99); Mean Platelet Vol. 10.2 fl (6.2-12.0); Monocyte# 0.66 X10^3/uL; Monocyte% 9.8 % (0-10); Neutrophil # 3.75 X10^3/uL (2.7-7.7); Neutrophil % 55.9 % (47-70); Platelet Count 159 K/mm3 (150-450); RBC Distribution Width CV 12.9 % (11.6-14.6); RBC Distribution Width SD 45.2 fl (35.1-43.9); Red Blood Count 4.24 M/mm3 (4.2-5.4); White Blood Count 6.7 K/mm3 (4.4-11.0)
[2018-06-14 18:46] LABS: POSITIVE COUNT NO; POSITIVE DIFFERENTIAL NO; POSITIVE MORPHOLOGY NO
[2018-06-14 18:51] LABS: Bedside Glucose 118 mg/dL (70-110)
[2018-06-14 18:56] LABS: Prothrombin Time (Protime)PT. 13.4 SECONDS (11.7-14.9)
[2018-06-14 18:57] LABS: Partial Thromboplast Time 32.1 Seconds (24.1-36.2)
[2018-06-14 19:02] LABS: Anion Gap 3 (5-15); BUN 8 mg/dL (7-18); BUN/Creat Ratio 13.9 RATIO (10-20); Calcium,Total 8.6 mg/dL (8.5-10.1); Chloride 107 mmol/L (98-107); Creatinine, Serum 0.57 mg/dL (0.55-1.02); EST Glomerular Filtration Rate 107 mL/min (>60); Est Glom Filt Rate - Afr Amer 130 mL/min (>60); Glucose 114 mg/dL (74-106); Potassium 3.9 mmol/L (3.5-5.1); Sodium Level 141 mmol/L (136-145)
--- NOTE | 2018-06-14 19:21 | ED.RN ---
Updated ECF, notified them on date wrong on their admission record and need of appropriate medication record for the correct pt. MAR will be faxed.
--- NOTE | 2018-06-14 19:28 | CT_ITS ---
STUDY: CTA NECK WITH CONTRAST REASON FOR EXAM: Female, 82 years old. CVA, right hemispheric stroke. RADIATION DOSAGE (If Supplied By Facility): CTDIvol = ( 20.25 ) mGy, DLP = ( 520.61 ) mGycm TECHNIQUE: CT angiography with multi-detector data acquisition was performed from the aortic arch to the skull base following intravenous administration of 100ML IV Isovue 370. MIP images were reconstructed from the axial data set. Post-processing of the angiographic images was performed, with multiplanar reformation and 3D reconstruction. Individualized dose optimization techniques were used for this CT. COMPARISON: None. FINDINGS: AORTIC ARCH: Normal visualized aortic arch. Normal origins of the brachiocephalic, left common carotid, and left subclavian arteries. RIGHT CAROTID ARTERIES: Normal right common carotid artery (CCA). Normal right common carotid bulb. Normal origin of the right internal carotid (ICA) artery without a hemodynamically significant stenosis. Normal visualized cervical portion of the right internal carotid artery. Normal origin of the right external carotid artery (ECA). LEFT CAROTID ARTERIES: Normal left common carotid artery (CCA). Normal left common carotid bulb. Normal origin of the left internal carotid (ICA) artery without a hemodynamically significant stenosis. Normal visualized cervical portion of the left internal carotid artery. Normal origin of the left external carotid artery (ECA). VERTEBRAL ARTERIES: Normal bilateral vertebral arteries. CT/CTA Neck W/WO Contrast IMPRESSION: Normal bilateral cervical carotid and vertebral arteries. Electronically Signed: Scarlet Diane MD at 20:38 EDT Tel , Service support ,
--- NOTE | 2018-06-14 19:28 | CT_ITS ---
STUDY: CTA OF THE BRAIN REASON FOR EXAM: Female, 82 years old. Right hemispheric stroke. RADIATION DOSAGE (If Supplied By Facility): CTDIvol = ( ) mGy, DLP = ( ) mGycm TECHNIQUE: CT angiography was performed with a multi-detector CT scanner. Data acquisition was obtained from the skull base through the vertex following intravenous administration of 100 ML IV Isovue 370. MIP images were reconstructed from the axial data set. Post-processing of the angiographic images was performed, with multiplanar reformation and 3D reconstruction. Individualized dose optimization techniques were used for this CT. COMPARISON: 06/14/2018 6:37 PM. FINDINGS: Normal bilateral petrous carotid arteries. Normal right cavernous carotid artery with a normal supraclinoid bifurcation. Normal left cavernous carotid artery with a normal supraclinoid bifurcation. There is a hypoplastic A1 segment of the right anterior cerebral artery. Normal left A1 segment of the anterior cerebral artery. Normal intact anterior communicating artery (ACOM). Normal bilateral A2 segments of the anterior cerebral arteries. Normal M1 and M2 segments of the right middle cerebral artery, with a normal M1 bifurcation. Normal M1 segment of the left middle cerebral artery. There is no definite vascular occlusion. However, there is significantly decreased flow in the left MCA distribution. There is non-visualization of the right posterior communicating artery (PCOM). There is non-visualization of the left posterior communicating artery (PCOM). Normal bilateral vertebral arteries. Normal basilar artery with a normal basilar bifurcation. The visualized bilateral superior cerebellar (SCA) arteries are normal. Normal bilateral P1, P2 and visualized P3 segments of the posterior cerebral arteries. No demonstrated aneurysm. CT/CTA Head W/WO Contrast IMPRESSION: No high-grade stenosis or demonstrated occlusion. However, there is significantly decreased flow in the left middle cerebral artery distribution, suspicious for decreased flow or occult occlusion. Electronically Signed: Scarlet Diane MD at 20:31 EDT Tel , Service support ,
--- NOTE | 2018-06-14 20:06 | PCM.HP.STD ---
Problem List (1) CVA (cerebral vascular accident) Status: Acute (2) Parkinson disease Status: Chronic (3) Hypertension Status: Chronic (4) GERD (gastroesophageal reflux disease) Status: Chronic History of Present Illness Date of Admission: 06/14/18 Chief Complaint: Left-sided weakness The patient is a 82 year old F with PMH as below who lives in assisted living with her , who noticed that at around 4:00 this afternoon she appeared weak on her left side and had a left facial droop. He states that she did take a nap at 2:00 and prior to her nap she was at her baseline. On presentation to the ER it was felt that she was outside of the window for TPA and she was clinically improving as she did not have a facial droop anymore per her report. In the ER she was found to have an NIH of 3, and a CT of the brain was negative. CTAs of her head and neck are still pending. Per the she is a DNR CCA given the fact that she has Parkinson's dementia. He also notes that she is recently been treated for UTI and they have been struggling to get under control, though he thinks that they have finally succeeded as her antibiotics have been discontinued. They did place a Briceño in her at the assisted living, but he says that she has got like this before in the setting of a UTI, no UA was ordered in the ER. Past Medical History Past Medical History (Chronic Problems): Chronic Problems Parkinson disease (Chronic) Hypertension (Chronic) GERD (gastroesophageal reflux disease) (Chronic) Chronic back pain (Chronic) Syncopal episodes (Chronic) Allergies No Known Allergies Allergy (Verified 06/14/18 18:50) Home Medications: Ambulatory Orders Medication Instructions Recorded Amlodipine [Norvasc] 5 mg PO DAILY 04/19/14 Cholecalciferol (VIT D3) [Vitamin 1,000 unit PO DAILY 04/19/14 D3] Magnesium 200 mg PO DAILY 04/19/14 Aspirin [Lo-Dose Aspirin EC] 81 mg PO DAILY 05/22/17 Atorvastatin Calcium [Lipitor] 20 mg PO QHS 05/22/17 Carbidopa/Levodopa 50/200 [Sinemet 1 tab PO BID 05/22/17 CR 50/200] Clonazepam [Klonopin] 0.5 mg PO QHS 05/22/17 Omeprazole 20 mg PO DAILY 05/22/17 Calcium Carbonate [Calcium] 1,200 mg PO DAILY 09/05/17 Mv-Min/FA/Vit K/Lycop/Lut/Zeax 1 each PO DAILY 09/05/17 [Ocuvite Eye Plus Multi Tablet] Atenolol [Tenormin (beta gilbert)] 12.5 mg PO DAILY #30 tab 09/07/17 Acetaminophen 500 mg PO Q6H PRN PRN 06/14/18 Gabapentin [Neurontin] 100 mg PO 4X/DAY 06/14/18 Lisinopril [Zestril] 20 mg PO DAILY 06/14/18 Memantine Hydrochloride [Namenda] 10 mg PO BID 06/14/18 Moxifloxacin Ophthalmic [Vigamox 1 drop LEFT EYE 4X/DAY 06/14/18 Ophth] Surgical History: appendectomy, cholecystectomy, - - Bladder suspension history, L hip repair/pinning s/p fracture. 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 Lives: Spouse/ Significant Other Smoking Status: Never smoker Alcohol: None Drugs: None - *Family History Maternal History Items: No pertinent history Paternal History Items: No pertinent history Review of Systems Unable to obtain accurate/complete ROS d/t: Parkinson dementia VTE Information - Inpt Only VTE Present on Admission: No - Physical Exam General: Alert, Oriented x3, Cooperative, No apparent distress HEENT: Atraumatic, PERRLA, EOMI, Normocephalic Oral: Dry Mucosa Neck: Supple, No JVD, Trachea Midline Lungs: Clear to auscultation, Normal air movement, No rhonchi, No wheeze, No rales Cardiovascular: Regular rate, Regular Rhythm, Normal S1, Normal S2, No murmurs Abdomen: Soft, Non Tender, Non-Distended, No Hepato-splenomegaly Extremities: No edema, Capillary Refill Less than 3 Seconds Skin: No rashes, No breakdown Neurological: Deep Tendon Reflexes 2+/4 and Symmetrical, Sensory exam intact to light touch and pain, - - Right upper extremity is 4+ out of 5, left upper extremity is 2 out of 5, 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 Both lower extremities are weak Psych/Mental Status: Flat Affect - Chronic Vital Signs Temp Pulse Resp BP Pulse Ox 97.8 F 66 13 145/64 H 92 06/14/18 19:00 06/14/18 19:35 06/14/18 19:06 06/14/18 19:35 06/14/18 19:35 Oxygen Flow Rate (L/min) 1 Oxygen Delivery Method Room Air Weight: 171 lb 15.369 oz Body Mass Index (BMI) 31.4 Finger Stick Blood Glucose 118 Laboratory Tests Past 24 Hrs 06/14/18 06/14/18 06/14/18 18:39 18:39 18:39 WBC 6.7 RBC 4.24 Hgb 13.0 Hct 40.6 MCV 95.8 MCH 30.7 MCHC 32.0 RDW 12.9 RDW Differential 45.2 H Plt Count 159 MPV 10.2 Immature Gran % (Auto) 0.100 Neut % (Auto) 55.9 Lymph % (Auto) 28.1 [place] % (Auto) 9.8 Eos % (Auto) 5.7 H Baso % (Auto) 0.4 Absolute Neuts (auto) 3.8 Absolute Lymphs (auto) 1.89 Total Counted Not Reportable PT 13.4 INR 1.0 APTT 32.1 Sodium 141 Potassium 3.9 Chloride 107 Carbon Dioxide 31.0 Anion Gap 3 L BUN 8 Creatinine 0.57 Est GFR (MDRD) Af Amer 130 Est GFR (MDRD) Non-Af 107 BUN/Creatinine Ratio 13.9 Glucose 114 H Calcium 8.6 Troponin I < 0.015 POC Glucose 06/14/18 18:47 POC Glucose 118 H Assessment/Plan All Active Problems CVA (cerebral vascular accident) (Acute) 1. Acute right-sided CVA with left-sided deficits/Parkinson's/Parkinson's dementia -We will consult neurology for evaluation -Repeat echo tomorrow, UA pending -CTA head and neck are pending -PT/OT, swallowing evaluation -She is on aspirin at home, will continue and add Plavix -We will increase her Lipitor from 20 to 80 -Continue with Sinemet, Namenda -Hold her blood pressure medications permissive hypertension 2. GERD -Stable -Continue with PPI 3. HTN -She is on lisinopril, and atenolol and Norvasc -We will hold to allow for permissive hypertension DVT: Lovenox Code Visit Inpatient E&M: 73982 Init Hosp L3
[2018-06-14] MEDS: 0.9% Normal Saline 1,000 ML 100 ML IV (20:41)
[2018-06-14] MEDS: CARBIDOPA/LEVODOPA CR 50/200 Tablet PO (22:01)
[2018-06-14] MEDS: Clopidogrel Bisulfate 75 MG Tablet PO (22:01)
[2018-06-14] MEDS: Atorvastatin Calcium 80 MG Tablet PO (22:01)
[2018-06-14] MEDS: Gabapentin 100 MG Capsule PO (22:01)
[2018-06-14] MEDS: Memantine Hydrochloride 10 MG Tablet PO (22:01)
[2018-06-14 22:46] LABS: Mucous, Urine 0 SEEN /hpf (<or=2+)
[2018-06-14 22:49] LABS: Color, Urine Yellow (Yellow); Glucose, Dipstick Normal (Normal); Ketone-Dipstick Negative (Negative); Leukocyte Esterase-Dipstick 500 /ul (Negative); Nitrite-Dipstick Negative (Negative); Occult Blood-Urine 25 /ul (Negative); Protein-Dipstick Negative (Negative); Specific Gravity, Urine 1.015 (1.002-1.030); Urine Bilirubin Dipstick Negative (Negative); Urine Clarity Clear (Clear); Urine Urobilinogen Normal (Normal)
[2018-06-14 22:58] LABS: Bacteria 1+ /hpf (None Seen); Red Blood Cells-Urine 0-5 SEEN /hpf (0-5); Squamous Epithelial Cells - UA 0-5 SEEN /hpf (5-10); White Blood Cells 5-10 SEEN /hpf (0-5)
[2018-06-15] VITALS (12 sets, daily range): BP systolic 134–177; BP diastolic 63–77; PULSE 66–79; RESP 16–18; TEMP 36.3–37; O2SAT 94–97
[2018-06-15] MEDS: 0.9% Normal Saline 1,000 ML 100 ML IV ×2 (05:19→16:46)
[2018-06-15 05:38] LABS: Absolute Lymphocyte Count 1.41 X10^3/ul (0.83-4.51); Absolute Neutrophil Count 2.8 X10^3/uL (2.0-7.7); Basophil# 0.02 X10^3/uL; Basophil% 0.4 % (0-1); Eosinophil# 0.39 X10^3/uL; Eosinophils% 7.5 % (0-5); Hematocrit 37.9 % (37-47); Lymphocyte # 1.41 X10^3/ul (4.0); Lymphocyte % 27.1 % (19-41); Mean Corp Hgb Conc 31.7 g/gl (32-36); Mean Corpuscular Hgb 30.5 pg (27.0-32.0); Mean Corpuscular Volume 96.2 fL (81-99); Mean Platelet Vol. 10.6 fl (6.2-12.0); Monocyte# 0.54 X10^3/uL; Monocyte% 10.4 % (0-10); Neutrophil # 2.84 X10^3/uL (2.7-7.7); Neutrophil % 54.4 % (47-70); Platelet Count 162 K/mm3 (150-450); RBC Distribution Width CV 12.7 % (11.6-14.6); Red Blood Count 3.94 M/mm3 (4.2-5.4); White Blood Count 5.2 K/mm3 (4.4-11.0)
[2018-06-15 05:45] LABS: POSITIVE COUNT NO; POSITIVE DIFFERENTIAL NO; POSITIVE MORPHOLOGY NO
[2018-06-15 05:57] LABS: Anion Gap 7 (5-15); BUN 7 mg/dL (7-18); BUN/Creat Ratio 16.5 RATIO (10-20); Calcium,Total 8.2 mg/dL (8.5-10.1); Chloride 110 mmol/L (98-107); Cholesterol 127 mg/dL (200); Creatinine, Serum 0.42 mg/dL (0.55-1.02); EST Glomerular Filtration Rate 152 mL/min (>60); Est Glom Filt Rate - Afr Amer 184 mL/min (>60); Estimated Creatinine Clearance 35.49 ml/min; Glucose 93 mg/dL (74-106); High Density Lipoprotein 31 mg/dL; Potassium 3.7 mmol/L (3.5-5.1); Sodium Level 145 mmol/L (136-145); Triglycerides 215 mg/dL; Very Low Density Lipoprotein 43 mg/dL (5-40)
[2018-06-15] MEDS: Acetaminophen 500 MG Tablet PO ×3 (08:59→22:45)
[2018-06-15] MEDS: Aspirin 81 MG TAB.CHEW PO (08:59)
[2018-06-15] MEDS: Enoxaparin 40 MG/0.4 ML Syringe SC (08:59)
[2018-06-15] MEDS: Memantine Hydrochloride 10 MG Tablet PO ×2 (08:59→21:03)
[2018-06-15] MEDS: CARBIDOPA/LEVODOPA CR 50/200 Tablet PO ×2 (09:00→21:03)
[2018-06-15] MEDS: Gabapentin 100 MG Capsule PO ×4 (09:00→21:03)
[2018-06-15] MEDS: Clopidogrel Bisulfate 75 MG Tablet PO (09:00)
[2018-06-15] MEDS: Pantoprazole Sodium 20 MG Tablet PO (09:00)
--- NOTE | 2018-06-15 09:51 | CON.PCM_ITS ---
Reason for Consult Date of Consultation: 06/15/18 Reason for Consultation: left sided weakness History of Present Illness: The patient is a 82 year old F presented as below, per son and , she is improved. last night noted no control of left side, decreased movement of right side as well. son notes anxiety due to husbands pending surgery. PER ADMIT NOTE:The patient is a 82 year old F with PMH as below who lives in assisted living with her , who noticed that at around 4:00 this afternoon she appeared weak on her left side and had a left facial droop. He states that she did take a nap at 2:00 and prior to her nap she was at her baseline. On presentation to the ER it was felt that she was outside of the window for TPA and she was clinically improving as she did not have a facial droop anymore per her report. In the ER she was found to have an NIH of 3, and a CT of the brain was negative. CTAs of her head and neck are still pending. Per the she is a DNR CCA given the fact that she has Parkinson's dementia. He also notes that she is recently been treated for UTI and they have been struggling to get under control, though he thinks that they have finally succeeded as her antibiotics have been discontinued. They did place a Briceño in her at the assisted living, but he says that she has got like this before in the setting of a UTI, no UA was ordered in the ER. Past Medical History Past Medical History (Chronic Problems): Chronic Problems Parkinson disease (Chronic) Hypertension (Chronic) GERD (gastroesophageal reflux disease) (Chronic) Chronic back pain (Chronic) Syncopal episodes (Chronic) Allergies ciprofloxacin Allergy (Verified 06/14/18 21:53) Other PATIENT UNABLE TO TELL ABOUT ALLERGY LISTED ON PAPERS FROM THE AVENUE Home Medications: Ambulatory Orders Medication Instructions Recorded Amlodipine [Norvasc] 5 mg PO DAILY 04/19/14 Cholecalciferol (VIT D3) [Vitamin 1,000 unit PO DAILY 04/19/14 D3] Magnesium 250 mg PO DAILY 04/19/14 Aspirin [Lo-Dose Aspirin EC] 81 mg PO DAILY 05/22/17 Atorvastatin Calcium [Lipitor] 20 mg PO QHS 05/22/17 Carbidopa/Levodopa 50/200 [Sinemet 1 tab PO BID 05/22/17 CR 50/200] Clonazepam [Klonopin] 0.5 mg PO QHS 05/22/17 Omeprazole 20 mg PO DAILY 05/22/17 Calcium Carbonate [Calcium] 1,200 mg PO DAILY 09/05/17 Mv-Min/FA/Vit K/Lycop/Lut/Zeax 1 each PO DAILY 09/05/17 [Ocuvite Eye Plus Multi Tablet] Acetaminophen 500 mg PO Q6H PRN PRN 06/14/18 Atenolol [Tenormin (beta gilbert)] 12.5 mg PO DAILY 06/14/18 Gabapentin [Neurontin] 100 mg PO 4X/DAY 06/14/18 Lactobacillus Acidophilus 1 each PO DAILY 06/14/18 [Acidophilus] Lisinopril [Zestril] 20 mg PO DAILY 06/14/18 Memantine Hydrochloride [Namenda] 10 mg PO BID 06/14/18 Moxifloxacin Ophthalmic [Vigamox 1 drop LEFT EYE 4X/DAY 06/14/18 Ophth] Surgical History: appendectomy, cholecystectomy, - - Bladder suspension history, L hip repair/pinning s/p fracture. 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 Lives: Spouse/ Significant Other Smoking Status: Never smoker Alcohol: None Drugs: None - *Family History Maternal History Items: No pertinent history Paternal History Items: No pertinent history Review of Systems Constitutional: Denies: Chills, Fever, Weight Change HEENT: Denies: Head Aches, Sinus Congestion, Sinus Drainage Cardiovascular: Denies: Chest Pain, Palpitations Respiratory: Denies: Cough, Shortness of breath at rest, Sputum production Gastrointestinal: Denies: Abdominal Pain, Nausea, Vomiting Genitourinary: Denies: Dysuria Musculoskeletal: Denies: Joint Pain, Joint Tenderness Skin: Denies: Rash, Wounds Neurological: Denies: Numbness, Tingling, Focal weakness Psychiatric: Denies: Anxiety, Depression, Homicidal Ideations, Suicidal Ideations Hematologic/ Lymphatic: Denies: Easy Bruising, Easy Bleeding - Physical Exam General: Alert, Oriented x3, Cooperative, No apparent distress HEENT: PERRLA, EOMI Neurological: Cranial nerves II-XII grossly intact, Deep Tendon Reflexes 2+/4 and Symmetrical, Neuro grossly intact, - - bilateral le weakness, chronic Psych/Mental Status: Flat Affect Vital Signs Temp Pulse Resp BP Pulse Ox 36.7 C 79 16 150/77 H 97 06/15/18 04:31 06/15/18 07:08 06/15/18 04:31 06/15/18 04:31 06/15/18 07:55 Oxygen Flow Rate (L/min) 2 Oxygen Delivery Method Room Air Weight: 71.1 kg Body Mass Index (BMI) 28.6 Finger Stick Blood Glucose 118 Intake and Output for Last 24 Hours 06/13/18 06/14/18 06/15/18 23:59 23:59 23:59 Intake Total 1144 / 1144 Output Total 1425 / 1425 Balance -281 / -281 Laboratory Tests Past 24 Hrs 06/14/18 06/14/18 06/14/18 18:39 18:39 18:39 WBC 6.7 RBC 4.24 Hgb 13.0 Hct 40.6 MCV 95.8 MCH 30.7 MCHC 32.0 RDW 12.9 RDW Differential 45.2 H Plt Count 159 MPV 10.2 Immature Gran % (Auto) 0.100 Neut % (Auto) 55.9 Lymph % (Auto) 28.1 [place] % (Auto) 9.8 Eos % (Auto) 5.7 H Baso % (Auto) 0.4 Absolute Neuts (auto) 3.8 Absolute Lymphs (auto) 1.89 Total Counted Not Reportable PT 13.4 INR 1.0 APTT 32.1 Sodium 141 Potassium 3.9 Chloride 107 Carbon Dioxide 31.0 Anion Gap 3 L BUN 8 Creatinine 0.57 Estim Creat Clear Calc Est GFR (MDRD) Af Amer 130 Est GFR (MDRD) Non-Af 107 BUN/Creatinine Ratio 13.9 Glucose 114 H Calcium 8.6 Troponin I < 0.015 Triglycerides Cholesterol LDL Cholesterol VLDL Cholesterol HDL Cholesterol Urine Color Urine Clarity Urine pH Ur Specific [place] Urine Protein Urine Glucose (UA) Urine Ketones Urine Occult Blood Urine Nitrite Urine Bilirubin Urine Urobilinogen Ur Leukocyte Esterase Urine RBC Urine WBC Ur Squamous Epith Cells Urine Bacteria Urine Mucus 06/14/18 06/15/18 06/15/18 21:30 04:58 04:58 WBC 5.2 RBC 3.94 L Hgb 12.0 Hct 37.9 MCV 96.2 MCH 30.5 MCHC 31.7 L RDW 12.7 RDW Differential 43.0 Plt Count 162 MPV 10.6 Immature Gran % (Auto) 0.200 Neut % (Auto) 54.4 Lymph % (Auto) 27.1 [place] % (Auto) 10.4 H Eos % (Auto) 7.5 H Baso % (Auto) 0.4 Absolute Neuts (auto) 2.8 Absolute Lymphs (auto) 1.41 Total Counted Not Reportable PT INR APTT Sodium 145 Potassium 3.7 Chloride 110 H Carbon Dioxide 28.0 Anion Gap 7 BUN 7 Creatinine 0.42 L Estim Creat Clear Calc 35.49 Est GFR (MDRD) Af Amer 184 Est GFR (MDRD) Non-Af 152 BUN/Creatinine Ratio 16.5 Glucose 93 Calcium 8.2 L Troponin I Triglycerides 215 H Cholesterol 127 LDL Cholesterol 53 VLDL Cholesterol 43 H HDL Cholesterol 31 L Urine Color Yellow Urine Clarity Clear Urine pH 8.0 Ur Specific [place] 1.015 Urine Protein Negative Urine Glucose (UA) Normal Urine Ketones Negative Urine Occult Blood 25 H Urine Nitrite Negative Urine Bilirubin Negative Urine Urobilinogen Normal Ur Leukocyte Esterase 500 H Urine RBC 0-5 SEEN Urine WBC 5-10 SEEN Ur Squamous Epith Cells 0-5 SEEN Urine Bacteria 1+ Urine Mucus 0 SEEN POC Glucose 06/14/18 18:47 POC Glucose 118 H cta reviewed, no significant stenosis Assessment/Plan All Active Problems CVA (cerebral vascular accident) (Acute) confusion, encephalopathy, intercurrent anxiety, chronic bladder issues no clear evidence of acute brain injury, cta unremarkable await mri pt, ot, speech therapy ok to dc if mri neg and back to baseline f/u as op with her usual neurologist, dr carrillo
--- NOTE | 2018-06-15 11:03 | PCM.PN.HOSP ---
Subjective: Patient was seen and examined. She feels improved. No new complaints. No acute complaints. Objective: Physical Exam General: Alert, Oriented x3, Cooperative, No apparent distress HEENT: Atraumatic, PERRLA, EOMI, Normocephalic Oral: Dry Mucosa Neck: Supple, No JVD, Trachea Midline Lungs: Clear to auscultation, Normal air movement, No rhonchi, No wheeze, No rales Cardiovascular: Regular rate, Regular Rhythm, Normal S1, Normal S2, No murmurs Abdomen: Soft, Non Tender, Non-Distended, No Hepato-splenomegaly Extremities: No edema, Capillary Refill Less than 3 Seconds Skin: No rashes, No breakdown Neurological: Deep Tendon Reflexes 2+/4 and Symmetrical, Sensory exam intact to light touch and pain, power is 4/5 in all extremities weak Psych/Mental Status: Flat Affect - Chronic Vitals/I&O's: Vital Signs Temp Pulse Resp BP Pulse Ox 98.6 F 78 18 147/63 H 94 06/15/18 08:30 06/15/18 08:30 06/15/18 08:30 06/15/18 08:30 06/15/18 08:30 Oxygen Flow Rate (L/min) 2 Oxygen Delivery Method Room Air Weight: 71.1 kg Body Mass Index (BMI) 28.6 Finger Stick Blood Glucose 118 Intake and Output for Last 24 Hours 06/13/18 06/14/18 06/15/18 23:59 23:59 23:59 Intake Total 1144 / 1144 Output Total 1425 / 1425 Balance -281 / -281 Laboratory Results 06/14/18 18:39: WBC 6.7, RBC 4.24, Hgb 13.0, Hct 40.6, MCV 95.8, MCH 30.7, MCHC 32.0, RDW 12.9, RDW Differential 45.2 H, Plt Count 159, MPV 10.2, Immature Gran % (Auto) 0.100, Neut % (Auto) 55.9, Lymph % (Auto) 28.1, [place] % (Auto) 9.8, Eos % (Auto) 5.7 H, Baso % (Auto) 0.4, Absolute Neuts (auto) 3.8, Absolute Lymphs (auto) 1.89, Total Counted Not Reportable 06/14/18 18:39: PT 13.4, INR 1.0, APTT 32.1 06/14/18 18:39: Sodium 141, Potassium 3.9, Chloride 107, Carbon Dioxide 31.0, Anion Gap 3 L, BUN 8, Creatinine 0.57, Est GFR (MDRD) Af Amer 130, Est GFR (MDRD) Non-Af 107, BUN/Creatinine Ratio 13.9, Glucose 114 H, Calcium 8.6, Troponin I < 0.015 06/14/18 18:47: POC Glucose 118 H 06/14/18 21:30: Urine Color Yellow, Urine Clarity Clear, Urine pH 8.0, Ur Specific [place] 1.015, Urine Protein Negative, Urine Glucose (UA) Normal, Urine Ketones Negative, Urine Occult Blood 25 H, Urine Nitrite Negative, Urine Bilirubin Negative, Urine Urobilinogen Normal, Ur Leukocyte Esterase 500 H, Urine RBC 0-5 SEEN, Urine WBC 5-10 SEEN, Ur Squamous Epith Cells 0-5 SEEN, Urine Bacteria 1+, Urine Mucus 0 SEEN 06/15/18 04:58: WBC 5.2, RBC 3.94 L, Hgb 12.0, Hct 37.9, MCV 96.2, MCH 30.5, MCHC 31.7 L, RDW 12.7, RDW Differential 43.0, Plt Count 162, MPV 10.6, Immature Gran % (Auto) 0.200, Neut % (Auto) 54.4, Lymph % (Auto) 27.1, [place] % (Auto) 10.4 H, Eos % (Auto) 7.5 H, Baso % (Auto) 0.4, Absolute Neuts (auto) 2.8, Absolute Lymphs (auto) 1.41, Total Counted Not Reportable 06/15/18 04:58: Sodium 145, Potassium 3.7, Chloride 110 H, Carbon Dioxide 28.0, Anion Gap 7, BUN 7, Creatinine 0.42 L, Estim Creat Clear Calc 35.49, Est GFR (MDRD) Af Amer 184, Est GFR (MDRD) Non-Af 152, BUN/Creatinine Ratio 16.5, Glucose 93, Calcium 8.2 L, Triglycerides 215 H, Cholesterol 127, LDL Cholesterol 53, VLDL Cholesterol 43 H, HDL Cholesterol 31 L Current Medications Acetaminophen (Tylenol) 500 mg PO Q6H PRN PRN PRN Reason: PAIN Last Admin: 06/15/18 08:59 Dose: 500 mg Aspirin (Aspirin, Baby) 81 mg PO DAILY@0800 [facility] Last Admin: 06/15/18 08:59 Dose: 81 mg Atorvastatin Calcium (Lipitor) 80 mg PO QHS [facility] Last Admin: 06/14/18 22:01 Dose: 80 mg Carbidopa/Levodopa (Sinemet Cr) 1 tablet PO BID [facility] Last Admin: 06/15/18 09:00 Dose: 1 tablet Cholecalciferol (Vitamin D) 1,000 unit PO DAILY [facility] Last Admin: 06/15/18 09:00 Dose: 1,000 unit Clopidogrel Bisulfate (Plavix) 75 mg PO DAILY [facility] Last Admin: 06/15/18 09:00 Dose: 75 mg Enoxaparin Sodium (Lovenox) 40 mg SC DAILY@1000 [facility] Last Admin: 06/15/18 08:59 Dose: 40 mg Gabapentin (Neurontin) 100 mg PO 4X/DAY [facility] Last Admin: 06/15/18 09:00 Dose: 100 mg Sodium Chloride () 1,000 mls @ 100 mls/hr IV .Q10H [facility] Last Admin: 06/15/18 05:19 Dose: 100 mls/hr Magnesium Hydroxide (Milk Of Magnesia) 30 ml PO DAILY PRN PRN Reason: Constipation Memantine (Namenda) 10 mg PO BID [facility] Last Admin: 06/15/18 08:59 Dose: 10 mg Pantoprazole Sodium (Protonix) 20 mg PO DAILY [facility] Last Admin: 06/15/18 09:00 Dose: 20 mg Sodium Chloride () 5 - 15 ml IV UD PRN PRN Reason: SALINE FLUSH Medical Necessity - Tobacco Use Smoking Status: Never smoker Assessment/Plan All Active Problems CVA (cerebral vascular accident) (Acute) 1. Left-sided weakness, confusion likely secondary to acute metabolic encephalopathy Improved, MRI negative, neurology consulted, PT/OT/ST consulted 2. Parkinson's disease with dementia, on Sinemet, Namenda 3. GERD, on PPI 4. Hypertension 5. DVt PPx- Lovenox SC 6. Disposition: Possible DC in am Code Visit Inpatient E&M: 54390 Subs Hosp L2
--- NOTE | 2018-06-15 11:06 | MRI_ITS ---
STUDY: MRI BRAIN WITHOUT CONTRAST REASON FOR EXAM: Female, 82 years old. Left-sided weakness and slurred speech TECHNIQUE: Standardized multiplanar fat and water weighted pulse sequences were obtained. COMPARISON: CT 06/14/2018 FINDINGS: Normal size of the ventricles and extra-axial spaces for the patient's age. There are multiple white matter hyperintensities, distributed throughout the deep white matter tracts of the cerebral hemispheres, consistent with moderate chronic white matter ischemic changes. Normal bilateral basal ganglia. Normal thalami. There is no extra-axial fluid accumulation. Normal flow voids within the major intracranial circulation suggesting patency by spin echo criteria. Normal sella turcica, pituitary gland, infundibular stalk, optic chiasm and hypothalamus. Normal tectal plate and pineal gland. Normal midbrain, oj and medulla. Normal cerebellum. Normal basal cisterns. Normal bilateral temporal bones. Normal bilateral internal auditory canals. There are bilateral ocular lens implants with otherwise normal intraorbital contents. Normal visualized paranasal sinuses. Hyperostosis frontalis interna Normal visualized soft tissue structures. Normal visualized upper cervical spine. MRI/Brain without Contrast IMPRESSION: No evidence of acute infarct or hemorrhage. Moderate microangiopathic white matter disease. Electronically Signed: Sterling Child MD at 16:05 EDT Tel , Service support ,
--- NOTE | 2018-06-15 11:37 | CASEMGMT ---
SW spoke with patient as she is from [facility] [place]. She said she plans on returning to [facility] at discharge. DEDE will send updates to [facility] and then follow for d/c. Plan: discharge back to [facility] Amy DOTSON
--- NOTE | 2018-06-15 13:51 | CASEMGMT ---
Patient has a Healthcare LW and Healthcare POA on file. Amy COOLEY TRIAGE SPECIALIST
[2018-06-15] MEDS: Atorvastatin Calcium 20 MG Tablet PO (21:06)
[2018-06-16 02:00] VITALS: BP 141/65; PULSE 69; RESP 16; TEMP 36.8; O2SAT 95
[2018-06-16] MEDS: 0.9% Normal Saline 1,000 ML 100 ML IV (02:57)
[2018-06-16 03:55] VITALS: PULSE 79
[2018-06-16] MEDS: Acetaminophen 500 MG Tablet PO (04:07)
[2018-06-16 07:27] VITALS: PULSE 80
[2018-06-16 07:47] VITALS: BP 153/78; PULSE 82; RESP 16; TEMP 36.8; O2SAT 96
[2018-06-16] MEDS: Calcium (Elemental) 500 MG Tablet 1000 MG PO (07:54)
[2018-06-16] MEDS: Aspirin 81 MG TAB.CHEW PO (07:55)
[2018-06-16 08:00] VITALS: O2SAT 93
[2018-06-16] MEDS: Lisinopril 20 MG Tablet PO (10:03)
[2018-06-16] MEDS: Gabapentin 100 MG Capsule PO (10:03)
[2018-06-16] MEDS: Memantine Hydrochloride 10 MG Tablet PO (10:03)
[2018-06-16] MEDS: Magnesium Oxide 400 MG Tablet PO (10:03)
[2018-06-16] MEDS: Enoxaparin 40 MG/0.4 ML Syringe SC (10:04)
[2018-06-16] MEDS: amLODIPine 5 MG Tablet PO (10:04)
[2018-06-16] MEDS: Pantoprazole Sodium 20 MG Tablet PO (10:04)
[2018-06-16] MEDS: Atenolol 25 MG Tablet 12.5 MG PO (10:05)
[2018-06-16] MEDS: CARBIDOPA/LEVODOPA CR 50/200 Tablet PO (10:05)
--- NOTE | 2018-06-16 10:28 | CASEMGMT ---
Patient is ready for [facility]. DEDE spoke with patient's daughter and . They said if transport is not paid for they will take patient. SW said patient would go by wheelchair van as she can sit up and this is not covered by insurance. They said they will transport her. Await orders. Amy COOLEY MSW
--- NOTE | 2018-06-16 10:40 | PCM.TXEXTCAR ---
- Diet 06/14/18 22:03 Diet: Cardiac/Low Cholesterol Is pt able to select menu?: No - Routine Orders/Code Status Routine Lab Work: CBC - within 3 days, BMP - within 3 days Code Status: DNRCC-A - Therapies Weight Bearing: Weight bearing as tolerated Physical Therapy: Eval and Treat Occupational Therapy: Eval and Treat - Allergies/Procedures Done in Hospital Allergies/Adverse Reactions: Allergies ciprofloxacin Allergy (Verified 06/14/18 21:53) Other PATIENT UNABLE TO TELL ABOUT ALLERGY LISTED ON PAPERS FROM [facility] - Type of Care/Length of Stay Estimated LOS: Convalescent Care Less Than 30 days Type of Care Needed: Skilled Rehab Potential: Good Prognosis: Good - Additional Orders/Day of Discharge Additional Orders: Phelps catheter care, change phelps monthly Day of Discharge: 06/16/18 - Dietary and Speech Recommendations Dietitian Recommendations/Changes: Recommend change to liberal regular diet d/t poor appetite, decreased PO intake. Once PO intake is improved, recommend change to cardiac/low chol if in line with pt/family wishes. Will provide ONS at meals for added nutrition if consumed. - Follow Up Care Primary Care Physician: Tin Ignacio MD [Primary Care Provider] - Please follow up with your Primary Care Physician in: within 2 weeks of discharge When: Dr. Ruffin as scheduled
--- NOTE | 2018-06-16 10:45 | DS.PCM_ITS ---
Discharge Date and Diagnosis Date of Admission: 06/14/18 Date of Discharge: 06/16/18 - Primary Discharge Diagnosis Acute metabolic encephalopathy Left-sided weakness due to possible TIA - Secondary Discharge Diagnosis Chronic Problems Parkinson disease (Chronic) Hypertension (Chronic) GERD (gastroesophageal reflux disease) (Chronic) Chronic back pain (Chronic) Syncopal episodes (Chronic) Hospital Course and Treatment Imaging Results: Clinical Impression(s) from Imaging Studies Brain CT 06/14/18 18:36 IMPRESSION: No CT evidence of acute infarct or hemorrhage. If there is clinical concern for hyperacute ischemia that is not evident by CT, MRI should be considered if possible. Electronically Signed: Sterling Child MD at 18:55 EDT Tel , Service support , ADDENDUM: 06/14/18 1909 IMPRESSION: No CT evidence of acute infarct or hemorrhage. If there is clinical concern for hyperacute ischemia that is not evident by CT, MRI should be considered if possible. N.B. : The above information has been verbally conveyed by Sterling Child MD to Dr. David MD, on 06/14/2018 19:02:19 (ET). Electronically Signed: Sterling Child MD at 18:55 EDT Tel , Service support , Head CTA 06/14/18 19:28 IMPRESSION: No high-grade stenosis or demonstrated occlusion. However, there is significantly decreased flow in the left middle cerebral artery distribution, suspicious for decreased flow or occult occlusion. Electronically Signed: Scarlet Diane MD at 20:31 EDT Tel , Service support , Neck CTA 06/14/18 19:28 IMPRESSION: Normal bilateral cervical carotid and vertebral arteries. Electronically Signed: Scarlet Diane MD at 20:38 EDT Tel , Service support , Brain MRI 06/15/18 11:06 IMPRESSION: No evidence of acute infarct or hemorrhage. Moderate microangiopathic white matter disease. Electronically Signed: Sterling Child MD at 16:05 EDT Tel , Service support , Neurology Operations: None, - - OR 04/19/[address] Hameed s/p insertion multiple cannulated screws to left hip for incomplete subcapital fracture left hip. Procedures: 2-D Echocardiogram Summary of Care Provided: The patient is a 82 year old F with multiple comorbidities significant for Parkinson's disease with dementia, who lives in the assisted living facility with her who was noticed around 4:00 to be weak on her left side and had a left facial droop. Patient had taken in about 2 PM and prior to her nap she was said to be at her baseline. At the time of presentation to the emergency department, she was felt to be outside of window for TPA. She appeared also to be clinically improving and did not have any more facial droop. Her NIH SS score was 3. Initial CT of the brain was negative. CTA of the head and neck was unremarkable. MRI of the brain was also unremarkable. Patient was admitted to the telemetry bed, she was felt the next day. She was seen by neurology and recommended medical management. This was felt to be due to medication side effect, with chronic bladder issues. Patient had recently been treated for UTI. She has history of recurrent UTI.She was discharged in a stable state to the [facility] side of her assisted living facility. Patient was continued on her Ativan 0.5 nightly. Her gabapentin was decreased 100 mg twice daily. Subjective: On the day of discharge, patient was seen and examined. Complains of pain in both knees. This is chronic. Denied any fever or chills. No swelling of the knees. Objective: Physical Exam General: Alert, Oriented x3, Cooperative, No apparent distress HEENT: Atraumatic, PERRLA, EOMI, Normocephalic Oral: Dry Mucosa Neck: Supple, No JVD, Trachea Midline Lungs: Clear to auscultation, Normal air movement, No rhonchi, No wheeze, No rales Cardiovascular: Regular rate, Regular Rhythm, Normal S1, Normal S2, No murmurs Abdomen: Soft, Non Tender, Non-Distended, No Hepato-splenomegaly Extremities: No edema, Capillary Refill Less than 3 Seconds Skin: No rashes, No breakdown Neurological: Deep Tendon Reflexes 2+/4 and Symmetrical, Sensory exam intact to light touch and pain, power is 4/5 in all extremities weak Psych/Mental Status: Flat Affect - Chronic - Physical Exam Vital Signs Temp Pulse Resp BP Pulse Ox 98.3 F 82 16 153/78 H 93 06/16/18 07:47 06/16/18 07:47 06/16/18 07:47 06/16/18 07:47 06/16/18 08:00 Oxygen Flow Rate (L/min) 2 Oxygen Delivery Method Room Air Weight: 71.1 kg Body Mass Index (BMI) 28.6 Finger Stick Blood Glucose 118 Intake and Output for Last 24 Hours 06/14/18 06/15/18 06/16/18 23:59 23:59 23:59 Intake Total 2570 / 2570 1360 / 1360 Output Total 3050 / 3050 2500 / 2500 Balance -480 / -480 -1140 / -1140 Discharge Diet: Low fat/ Low Cholesterol, 2000 mg Sodium Diet Discharge Activity: Return to Normal Activity Home Medications: Medications to take at Discharge Amlodipine [Norvasc] 5 mg PO DAILY 04/19/14 Cholecalciferol (VIT D3) [Vitamin D3] 1,000 unit PO DAILY 04/19/14 Magnesium 250 mg PO DAILY 04/19/14 Aspirin [Lo-Dose Aspirin EC] 81 mg PO DAILY 05/22/17 Atorvastatin Calcium [Lipitor] 20 mg PO QHS 05/22/17 Carbidopa/Levodopa 50/200 [Sinemet CR 50/200] 1 tab PO BID 05/22/17 Clonazepam [Klonopin] 0.5 mg PO QHS 05/22/17 Omeprazole 20 mg PO DAILY 05/22/17 Calcium Carbonate [Calcium] 1,200 mg PO DAILY 09/05/17 Mv-Min/FA/Vit K/Lycop/Lut/Zeax [Ocuvite Eye Plus Multi Tablet] 1 each PO DAILY 09/05/17 Acetaminophen 500 mg PO Q6H PRN PRN 06/14/18 Atenolol [Tenormin (beta gilbert)] 12.5 mg PO DAILY 06/14/18 Lactobacillus Acidophilus [Acidophilus] 1 each PO DAILY 06/14/18 Lisinopril [Zestril] 20 mg PO DAILY 06/14/18 Memantine Hydrochloride [Namenda] 10 mg PO BID 06/14/18 Gabapentin [Neurontin] 100 mg PO BID #60 capsule 06/16/18 Following Prescrptions Were Given to Patient: Gabapentin [Neurontin] 100 mg PO BID #60 capsule Primary Care Physician: Tin Ignacio MD [Primary Care Provider] - Please follow up with your Primary Care Physician in: within 2 weeks of discharge When: Dr. Ruffin as scheduled Disposition: Nursing Home facility Minutes spent on discharge:: 40 Patient Condition:: Stable Medical Necessity - Tobacco Use Smoking Status: Never smoker Tobacco Use: Non-smoker Meaningful Use Info Meaningful Use Diagnoses (Choose all that apply): None applicable Code Visit OBSV E&M: 12572 Observation care discharge
--- NOTE | 2018-06-16 11:17 | CASEMGMT ---
Faxed orders to [facility]. Family to transport patient via private vehicle. Plan: d/c to [facility] under skilled level of care. PASRR was done by SNF as patient was scheduled to move to the correction side from assisted living today. Family transported via private vehicle. Amy COOLEY MSW
--- NOTE | 2018-06-16 11:44 | PHA.DC.MR ---
Pharmacy Service has performed discharge medication reconciliation for this patient upon transfer to [facility]. The patient's discharge medication list was reviewed for discrepancies and discrepancies were resolved. Home Medications Amlodipine [Norvasc] 5 mg PO DAILY 04/19/14 Cholecalciferol (VIT D3) [Vitamin D3] 1,000 unit PO DAILY 04/19/14 Magnesium 250 mg PO DAILY 04/19/14 Aspirin [Lo-Dose Aspirin EC] 81 mg PO DAILY 05/22/17 Atorvastatin Calcium [Lipitor] 20 mg PO QHS 05/22/17 Carbidopa/Levodopa 50/200 [Sinemet CR 50/200] 1 tab PO BID 05/22/17 Clonazepam [Klonopin] 0.5 mg PO QHS 05/22/17 Omeprazole 20 mg PO DAILY 05/22/17 Calcium Carbonate [Calcium] 1,200 mg PO DAILY 09/05/17 Mv-Min/FA/Vit K/Lycop/Lut/Zeax [Ocuvite Eye Plus Multi Tablet] 1 each PO DAILY 09/05/17 Acetaminophen 500 mg PO Q6H PRN PRN 06/14/18 Atenolol [Tenormin (beta gilbert)] 12.5 mg PO DAILY 06/14/18 Lactobacillus Acidophilus [Acidophilus] 1 each PO DAILY 06/14/18 Lisinopril [Zestril] 20 mg PO DAILY 06/14/18 Memantine Hydrochloride [Namenda] 10 mg PO BID 06/14/18 Gabapentin [Neurontin] 100 mg PO BID #60 capsule 06/16/18
--- NOTE | 2018-06-16 12:49 | NURSING ---
report called to nurse Botello at [facility].
== END 2018-06-16 10:01 | disposition skilled nursing facility (03) ==
LOC: ED 19:39 → PCU 20:07
PROVIDERS: Admitting Provider Family Medicine; Emergency Provider Emergency Medicine; Family Provider Internal Medicine; PCP Internal Medicine; Visit Provider Internal Medicine
DX: R53.1 Weakness (principal); G93.41 Metabolic encephalopathy; R29.810 Facial weakness; R20.2 Paresthesia of skin; R47.01 Aphasia; K21.9 Gastro-esophageal reflux disease without esophagitis; I10 Essential (primary) hypertension; G20 Parkinson's disease; Z79.899 Other long term (current) drug therapy; Z79.82 Long term (current) use of aspirin; G89.29 Other chronic pain; F02.80 Dementia in other diseases classified elsewhere, unspecified severity, without behavioral disturbance, psychotic disturbance, mood disturbance, and anxiety; R29.703 NIHSS score 3; Z87.440 Personal history of urinary (tract) infections
CPT/HCPCS: 36415; 70450; 70496; 70498; 70551; 80048; 80061; 81001; 82962; 84484; 85025; 85610; 85730; 92610; 93005; 93306; 96360; 96361; 96372; 97162; 97166; 97802; 99218; 99284; J7030; Q9967; A4216; G0378

== ENCOUNTER → 2018-06-17 06:15 | Outpatient (REF) | payer MEDICARE, SELFPAY ==
[2018-06-14 20:25] VITALS: BMI 28.6
[2018-06-17 08:51] LABS: Absolute Neutrophil Count 4.6 X10^3/uL (2.0-7.7); Basophil# 0.03 X10^3/uL; Basophil% 0.5 % (0-1); Eosinophil# 0.19 X10^3/uL; Eosinophils% 2.9 % (0-5); Hematocrit 39.7 % (37-47); Hemoglobin 12.7 g/dl (12.0-15.0); Lymphocyte % 16.9 % (19-41); Mean Corpuscular Hgb 30.3 pg (27.0-32.0); Mean Corpuscular Volume 94.7 fL (81-99); Mean Platelet Vol. 10.3 fl (6.2-12.0); Monocyte# 0.56 X10^3/uL; Monocyte% 8.6 % (0-10); Neutrophil # 4.61 X10^3/uL (2.7-7.7); Neutrophil % 70.9 % (47-70); POSITIVE COUNT NO; POSITIVE DIFFERENTIAL NO; POSITIVE MORPHOLOGY NO; Platelet Count 176 K/mm3 (150-450); RBC Distribution Width SD 44.8 fl (35.1-43.9); Red Blood Count 4.19 M/mm3 (4.2-5.4); White Blood Count 6.5 K/mm3 (4.4-11.0)
[2018-06-17 08:53] LABS: Anion Gap 7 (5-15); BUN 6 mg/dL (7-18); BUN/Creat Ratio 13.5 RATIO (10-20); Calcium,Total 8.8 mg/dL (8.5-10.1); Chloride 109 mmol/L (98-107); Creatinine, Serum 0.44 mg/dL (0.55-1.02); EST Glomerular Filtration Rate 144 mL/min (>60); Est Glom Filt Rate - Afr Amer 174 mL/min (>60); Glucose 88 mg/dL (74-106); Potassium 3.7 mmol/L (3.5-5.1); Sodium Level 144 mmol/L (136-145)
== END ==
LOC: OLS.AVED 06:15
PROVIDERS: Visit Provider Family Medicine
DX: I10 Essential (primary) hypertension (principal); G20 Parkinson's disease; G93.41 Metabolic encephalopathy; Z86.73 Personal history of transient ischemic attack (TIA), and cerebral infarction without residual deficits
CPT/HCPCS: 36415; 80048; 85025

== ENCOUNTER → 2018-06-19 10:30 | Outpatient (REF) | payer MEDICARE, SELFPAY ==
[2018-06-14 20:25] VITALS: BMI 28.6
[2018-06-22 09:07] LABS: Red Blood Cells-Urine 0 SEEN /hpf (0-5)
[2018-06-22 09:12] LABS: Color, Urine Straw (Yellow); Glucose, Dipstick Normal (Normal); Ketone-Dipstick Negative (Negative); Leukocyte Esterase-Dipstick 100 /ul (Negative); Nitrite-Dipstick Negative (Negative); Occult Blood-Urine Negative /ul (Negative); Protein-Dipstick Negative (Negative); Specific Gravity, Urine 1.015 (1.002-1.030); Urine Bilirubin Dipstick Negative (Negative); Urine Clarity Sl. Cloudy (Clear); Urine Urobilinogen Normal (Normal)
[2018-06-22 09:21] LABS: Bacteria RARE /hpf (None Seen); Calcium Oxalate Crystals Ur 1+ /hpf (<or=2+); Mucous, Urine RARE /hpf (<or=2+); Squamous Epithelial Cells - UA 0-5 SEEN /hpf (5-10); White Blood Cells 0-5 SEEN /hpf (0-5)
== END ==
LOC: OLS.AVED 10:30
PROVIDERS: Visit Provider Family Medicine
DX: R39.9 Unspecified symptoms and signs involving the genitourinary system (principal)
CPT/HCPCS: 81001; 87086; 87088; 87186

== ENCOUNTER 2018-07-03 06:07 | Emergency (ER) | payer MEDICARE, SELFPAY ==
[2018-06-14 20:25] VITALS: BMI 28.6
[2018-07-03 06:10] VITALS: BP 154/74; PULSE 83; RESP 16; TEMP 36.7; O2SAT 92; BMI 28.3
[2018-07-03 06:15] VITALS: O2SAT 95
--- NOTE | 2018-07-03 06:25 | RAD_ITS ---
HISTORY: PAIN LOWER BACK FALL COMPARISON: Two-view chest exam 04/19/2014 FINDINGS: XR Spine Lumbar 3 Views: Generalized bony demineralization consistent with the patient's age. Dorsal kyphosis with exaggeration of the normal lumbar lordosis. Lumbar vertebra appear normal in height. No fracture or acute osseous abnormality. Lumbar disc space heights are grossly preserved. L5-S1 facet joint arthritis. No spondylolisthesis. SI joints are grossly preserved. Surgical clips in region of gallbladder fossa. Sacral neurostimulator in place with the generator at the right hemipelvis and electrode tip at the left true pelvis. Atherosclerotic calcifications noted. RAD/Lumbar Spine 2 or 3 Views IMPRESSION: 1. Negative for fracture or acute osseous abnormality. 2. L5-S1 facet joint arthritis and additional chronic changes, as above. at 1328 Reported and signed by: Vamsi Cornejo MD Electronically Signed: Vamsi Cornejo, at 7:37 EDT Tel , Service support ,
--- NOTE | 2018-07-03 06:25 | CT_ITS ---
HISTORY: FALL EXAMINATION: CT Head or Brain W/O Contrast TECHNIQUE: Multiple axial images were obtained of the brain without intravenous contrast. A radiation dose optimization technique was used for this scan. IV Contrast dosage and agent: None. COMPARISON: 06/14/2018 and 12/11/2017 FINDINGS: Giant cisterna magna and stable prominence of the lateral ventricles in keeping with central atrophy. White matter chronic ischemic changes. No intracranial mass, hemorrhage, or acute parenchymal abnormality seen. Posterior fossa structures are unremarkable. No suspicious extra-axial fluid collection. Prominent hyperostosis frontalis interna. Posterior right parietal small scalp hematoma. Intact calvarium. As visualized, the mastoids and paranasal sinuses appear clear. CT/Brain/Head without Contrast IMPRESSION: 1. Negative for intracranial hemorrhage or acute parenchymal abnormality. 2. White matter chronic ischemic changes and central cerebral atrophy. 3. Posterior right parietal small scalp hematoma. No calvarial fracture. Individualized dose optimization techniques were used for this CT. at 0720 Reported and signed by: Vamsi Cornejo MD Electronically Signed: Vamsi Cornejo, at 7:19 EDT Tel , Service support ,
--- NOTE | 2018-07-03 06:25 | EKG12_ITS ---
Test Reason : FALL Blood Pressure : / mmHG Vent. Rate : 073 BPM Atrial Rate : 073 BPM P-R Int : 192 ms QRS Dur : 148 ms QT Int : 478 ms P-R-T Axes : 025 -06 083 degrees QTc Int : 526 ms Normal sinus rhythm Left bundle branch block Abnormal ECG Confirmed by ARIANNE POST, ISABEL ([id number]), department editor IMANI ALEX ([id number]) on 07/06/2018 4:07:45 PM Referred By: SONJA Confirmed By:ISABEL ACUÑA MD
--- NOTE | 2018-07-03 06:26 | ED.VISSUMM ---
- ER Visit Summary Date of Service: 07/03/18 Chief Complaint: Fall History of Present Illness: The patient is a 82 F who presents after a witnessed fall. She was recently moved from assisted living to a [facility] facility. She often uses a walker. Based on the family members description of what [facility] had [facility] it sounds like this was mechanical. Patient does believe she hit her head. She complains of some mid lower back pain. She states she felt short of breath a couple of days ago. She denies any fever chest pain current shortness of breath cough nausea vomiting diarrhea abdominal pain. Physical Examination: Blood pressure 154/74, pulse ox 92% on room air Extremities nontender No signs of head trauma such as lacerations contusions abrasions hematomas No neck tenderness Patient does have some lumbar tenderness Heart regular rate and rhythm Lungs clear Abdomen soft nontender Alert no focal or lateralizing neurological deficits Test Results: CBC and BMP unremarkable. Emergency Department Course and Treatment: Serum labs unremarkable. Urinalysis, lumbar x-rays, chest x-ray, CT of the head pending at the time of this dictation. On the monitor and pulse oximetry patient was noted to be intermittently desaturating down to 88%. However she is not short of breath. If work-up is otherwise unremarkable I do feel the patient can be discharged back to her nursing facility and they can do oxygen as needed. Patient signed out to the oncoming physician pending remainder of the evaluation. Treatment Plan: [] Disposition: [] Impression: [] This note was generated with [employer] dictation software. It may contain incorrect words, spelling, and punctuation that were not noted in review of the chart prior to signing ED Disposition - Plan for ED Patient: Referrals: Tin Ignacio MD [Primary Care Provider] -
[2018-07-03 07:00] LABS: Absolute Lymphocyte Count 0.91 X10^3/ul (0.83-4.51); Absolute Neutrophil Count 4.9 X10^3/uL (2.0-7.7); Basophil# 0.04 X10^3/uL; Basophil% 0.6 % (0-1); Eosinophil# 0.31 X10^3/uL; Eosinophils% 4.7 % (0-5); Hematocrit 41.6 % (37-47); Hemoglobin 13.7 g/dl (12.0-15.0); Lymphocyte # 0.91 X10^3/ul (4.0); Lymphocyte % 13.8 % (19-41); Mean Corp Hgb Conc 32.9 g/gl (32-36); Mean Corpuscular Hgb 30.6 pg (27.0-32.0); Mean Corpuscular Volume 92.9 fL (81-99); Mean Platelet Vol. 11.2 fl (6.2-12.0); Monocyte# 0.47 X10^3/uL; Monocyte% 7.1 % (0-10); Neutrophil # 4.86 X10^3/uL (2.7-7.7); Neutrophil % 73.5 % (47-70); Platelet Count 138 K/mm3 (150-450); RBC Distribution Width CV 12.9 % (11.6-14.6); RBC Distribution Width SD 43.5 fl (35.1-43.9); Red Blood Count 4.48 M/mm3 (4.2-5.4); White Blood Count 6.6 K/mm3 (4.4-11.0)
--- NOTE | 2018-07-03 07:00 | RAD_ITS ---
HISTORY: HYPOXIA EXAM:XR Chest 1 View portable COMPARISON: 09/05/2017 FINDINGS: EKG leads in place. No significant change. Chronic mild elevation of the right hemidiaphragm. Borderline cardiomegaly. Minor thickening of the right minor fissure. No acute infiltrate. No vascular congestion or pleural effusion. Atherosclerotic thoracic aorta. Surgical clips in region of the gallbladder fossa. RAD/Chest 1 View (Portable) IMPRESSION: 1. No acute cardiopulmonary disease. No significant interval change. at 0731 Reported and signed by: Vamsi Cornejo MD Electronically Signed: Vamsi Cornejo, at 7:30 EDT Tel , Service support ,
[2018-07-03 07:02] LABS: Anion Gap 3 (5-15); BUN 8 mg/dL (7-18); BUN/Creat Ratio 15.5 RATIO (10-20); Calcium,Total 8.8 mg/dL (8.5-10.1); Chloride 110 mmol/L (98-107); Creatinine, Serum 0.52 mg/dL (0.55-1.02); EST Glomerular Filtration Rate 121 mL/min (>60); Est Glom Filt Rate - Afr Amer 147 mL/min (>60); Estimated Creatinine Clearance 35.49 ml/min; Glucose 96 mg/dL (74-106); Sodium Level 141 mmol/L (136-145)
[2018-07-03 07:10] LABS: Differential Indicated SCAN CRITERIA MET; POSITIVE COUNT YES; POSITIVE DIFFERENTIAL NO; POSITIVE MORPHOLOGY NO
[2018-07-03 07:21] LABS: Differential Comment SCANNED
--- NOTE | 2018-07-03 07:32 | CT_ITS ---
STUDY: CTA CHEST REASON FOR EXAM: Female, 82 years old. Hypoxia. RADIATION DOSAGE (If Supplied By Facility): CTDIvol = ( 10.99 ) mGy, DLP = ( 312.34 ) mGycm TECHNIQUE: The examination was performed with the intravenous administration of 75 IV Isovue 370. Post-processing of the angiographic images was performed, with multiplanar reformation and 3D reconstruction. Individualized dose optimization techniques were used for this CT. COMPARISON: Comparison is made with prior chest radiograph done earlier in the day. FINDINGS: Nonocclusive filling defect is seen in a single branch of the right lower lobe pulmonary artery in the posterior medial segment of the right lower lobe. This may be a subacute embolus. There is atherosclerotic calcification of the aortic arch with tortuosity. There is no demonstrated aortic dissection. Normal heart and pericardium. There are calcified mediastinal lymph nodes. Normal hilar regions. Normal visualized trachea and bronchi. The lungs are well expanded. Bibasilar atelectasis slightly more prominent at the right lung base. Normal pleura. Normal chest wall structures. Normal osseous structures. Calcified splenic granulomas. I suspect a 1.3 cm cyst in the upper pole of the left kidney. The patient is status post cholecystectomy. Small hiatal hernia. CT/CTA Chest W/WO Contrast IMPRESSION: Focal nonocclusive filling defect in a right lower lobe pulmonary arterial branch in the posterior medial segment of the right lower lobe. This may be subacute. Findings increased bibasilar atelectasis slightly worse on the right side. Electronically Signed: Jigar Hodgson, at 8:46 EDT , Service support ,
[2018-07-03 08:59] VITALS: BP 137/68; PULSE 78; RESP 13; O2SAT 96
[2018-07-03 09:00] LABS: Mucous, Urine 0 SEEN /hpf (<or=2+)
[2018-07-03 09:03] LABS: Color, Urine Yellow (Yellow); Glucose, Dipstick Normal (Normal); Ketone-Dipstick Negative (Negative); Leukocyte Esterase-Dipstick 500 /ul (Negative); Nitrite-Dipstick Positive (Negative); Occult Blood-Urine 250 /ul (Negative); Protein-Dipstick 30 mg/dl (Negative); Specific Gravity, Urine 1.015 (1.002-1.030); Urine Bilirubin Dipstick Negative (Negative); Urine Clarity Sl. Cloudy (Clear); Urine Urobilinogen Normal (Normal)
[2018-07-03] MEDS: Ondansetron 4 MG/2 ML Vial IV (09:07)
[2018-07-03] MEDS: Morphine 2 MG/ML Syringe IV (09:07)
[2018-07-03 09:09] LABS: Bacteria 2+ /hpf (None Seen); Red Blood Cells-Urine 25-50 SEEN /hpf (0-5); Squamous Epithelial Cells - UA 0-5 SEEN /hpf (5-10); White Blood Cells 25-50 SEEN /hpf (0-5)
--- NOTE | 2018-07-03 09:38 | ED.VISSUMM ---
- ER Visit Summary Date of Service: 07/03/18 Chief Complaint: [] History of Present Illness: The patient is a 82 F [] Physical Examination: [] Test Results: [] Emergency Department Course and Treatment: [] Treatment Plan: [] Disposition: [] Impression: [] This note was generated with [employer] dictation software. It may contain incorrect words, spelling, and punctuation that were not noted in review of the chart prior to signing ED Disposition - Plan for ED Patient: Disposition: [facility] Diagnosis: Pulmonary embolus, right, Hypoxia, Urinary tract infection Instructions: ED UTI Cystitis Female, Pulmonary Embolism Prescriptions: Apixaban [Eliquis] 2.5 mg PO BID #74 tab Ciprofloxacin [Cipro] 250 mg PO BID #14 tab Referrals: Tin Ignacio MD [Primary Care Provider] - 5-7 Days
--- NOTE | 2018-07-03 09:42 | ED.DCSUM_ITS ---
- ER Visit Summary Date of Service: 07/03/18 Chief Complaint: [] History of Present Illness: The patient is a 82 F [] Physical Examination: [] Test Results: [] Emergency Department Course and Treatment: [] Treatment Plan: [] Disposition: [] Impression: [] This note was generated with [employer] dictation software. It may contain incorrect words, spelling, and punctuation that were not noted in review of the chart prior to signing ED Disposition - Plan for ED Patient: Disposition: [facility] Facility Diagnosis: Pulmonary embolus, right, Hypoxia, Urinary tract infection Instructions: ED UTI Cystitis Female, Pulmonary Embolism Prescriptions: Apixaban [Eliquis] 2.5 mg PO BID #74 tab Ciprofloxacin [Cipro] 250 mg PO BID #14 tab Referrals: Tin Ignacio MD [Primary Care Provider] - 5-7 Days
[2018-07-03] MEDS: APIXABAN 5 MG TABLET PO (10:13)
[2018-07-03] MEDS: Ceftriaxone 1 GM/50 ML BAG IV (10:13)
[2018-07-03 10:47] VITALS: BP 135/77; PULSE 68; RESP 15; O2SAT 98
--- NOTE | 2018-07-03 11:00 | CASEMGMT ---
Patient DC'd back to [facility], has a Dx of PE and was placed on Eliquis per ER MD. This CM discussed with patient sister at bedside- Provided Eliquis Coupon Card and Information Booklet, EMS currently at bedside loading patient to take back to ECF at time of CM Discussion. Sister denied any further questions or concerns. Eloy Waterman RNCM
== END 2018-07-03 10:49 | disposition skilled nursing facility (03) ==
PROVIDERS: Emergency Medicine; Emergency Provider Emergency Medicine; Family Provider Internal Medicine; PCP Internal Medicine
DX: S00.03XA Contusion of scalp, initial encounter (principal); I26.99 Other pulmonary embolism without acute cor pulmonale; R09.02 Hypoxemia; N39.0 Urinary tract infection, site not specified; W18.30XA Fall on same level, unspecified, initial encounter; Y93.89 Activity, other specified; Y92.129 Unspecified place in nursing home as the place of occurrence of the external cause; Y99.9 Unspecified external cause status; I10 Essential (primary) hypertension; E78.00 Pure hypercholesterolemia, unspecified; K21.9 Gastro-esophageal reflux disease without esophagitis; G20 Parkinson's disease; F02.80 Dementia in other diseases classified elsewhere, unspecified severity, without behavioral disturbance, psychotic disturbance, mood disturbance, and anxiety
CPT/HCPCS: 70450; 71045; 71275; 72100; 80048; 81001; 85025; 87086; 87186; 93005; 96365; 96375; 99285; Q9967; A4216; J2405